=== PATIENT | male | born 1930 | race Caucasian/White ===

== ENCOUNTER 2018-08-04 06:18 | Inpatient (IN) ==
--- NOTE | 2018-08-04 07:25 | PROVIDER DOCUMENTATION ---
HPI-General Adult - General Chief Complaint: Shortness of Breath Stated Complaint: resp distress Time Seen by Provider: 08/04/18 06:50 Source: patient Allergies/Adverse Reactions: Patient Allergies Allergy/AdvReac Type Severity Reaction Status Date / Time amoxicillin trihydrate * Allergy Unknown Unknown Verified 05/27/18 11:50 [From Augmentin] Antihistamines - Alkylamine Allergy Unknown Unknown Verified 05/27/18 11:50 Antihistamines - Ethanolamine Allergy Unknown Unknown Verified 05/27/18 11:50 cefadroxil [Cefadroxil] Allergy Unknown Unknown Verified 05/27/18 11:50 levofloxacin [From Levaquin] Allergy Unknown Unknown Verified 05/27/18 11:50 potassium clavulanate * Allergy Unknown Unknown Verified 05/27/18 11:50 [From Augmentin] codeine AdvReac Severe "makes him Verified 05/27/18 11:50 wild" gatifloxacin [From Tequin] AdvReac Severe weakness Verified 05/27/18 11:50 morphine AdvReac Severe palpatation Verified 05/27/18 11:50 s adhesive AdvReac Intermediate RASH Verified 05/27/18 11:50 Home Medications: Home Medication List Medication Instructions Recorded Confirmed Last Taken Type Carvedilol [Coreg] 6.25 mg PO BID #60 tablet 02/07/14 05/27/18 02/01/16 06:00 Rx Magnesium Oxide [Mag-Ox] 400 mg PO DAILY #100 tablet 02/07/14 05/27/18 01/31/16 09:00 Rx Diltiazem [Cardizem] 120 mg PO DAILY 12/08/15 05/27/18 01/31/16 21:00 History Iron 65 mg PO DAILY 01/03/16 05/27/18 01/31/16 09:00 History ATORVAstatin [Lipitor] 40 mg PO HS tablet 10/14/17 05/27/18 Unknown Rx Potassium Chloride [Klor-Con M20] 20 meq PO BID 11/14/17 11/14/17 Unknown History Furosemide [Lasix] 40 mg PO BID tablet 11/18/17 05/27/18 Unknown Rx Warfarin [Coumadin] 5 mg PO QHS tablet 11/18/17 Unknown Rx - History of Present Illness -Gen Adult Nature of Presenting Problems: This patient states that he has been sob for several days. He has a long history of afib and has had a pleural effusion drained in September. He denies fever of sputum production. Location of Pain/Injury: reports: none Severity: reports: moderate Onset/Duration: reports: last week Timing: reports: still present, getting worse Context/Activities at Onset: reports: light activity Modifying Factors: worse with: exercise, movement Associated Symptoms: reports: shortness of breath, trouble walking. denies: denies symptoms, anxiety, arm pain, back/neck pain, chest pain, constipation, cough, diaphoresis, diarrhea, dizziness, EENT symptoms, fatigue, fever/chills, genitourinary problems, headaches, heartburn, joint pain, loss of appetite, malaise, muscle aches, sinus congestion/drainage, nausea, rash, seizure, sensory/motor loss, pain with inspiration, swelling/mass in abdomen, syncope, vomiting, weakness, other Similar Symptoms Previously?: Yes Recently seen or treated by another doctor?: Yes Review of Systems - Adult - REVIEW OF SYSTEMS - ADULT Constitutional: reports: no symptoms reported Eyes: reports: no symptoms reported Ears, Nose, Mouth & Throat: reports: no symptoms reported Cardiovascular: reports: no symptoms reported Respiratory: reports: dyspnea on exertion, shortness of breath Gastrointestinal: reports: no symptoms reported Genitourinary: reports: no symptoms reported Musculoskeletal: reports: no symptoms reported Integumentary: reports: no symptoms reported Neurological: reports: no symptoms reported Psychiatric: reports: no symptoms reported Endocrine: reports: no symptoms reported Hematologic/Lymphatic: reports: no symptoms reported Allergic/Immunologic: reports: no symptoms reported All Other Systems: Reviewed and Negative Past History - Adult - PAST MEDICAL HISTORY-ADULT Review of Records: reports: Old Records Reviewed Major Childhood Illnesses: reports: denies history Cardiovascular: reports: A-Fib, CAD, HTN, hyperlipidemia Respiratory: reports: denies history Gastrointestinal: reports: denies history Obstetrical/Gynecological: reports: denies history Genitourinary: reports: denies history Musculoskeletal: reports: denies history Neurological: reports: CVA Endocrine/Immune: reports: denies history Other Conditions: reports: denies history - PRIOR SURGERIES/PROCEDURES Surgical/Procedure History: reports: CABG, cholecystectomy - IMMUNIZATION STATUS Childhood Immunizations: See Nurse Assessment Flu Vaccine: See Nurse Assessment - FAMILY HISTORY Family History: reviewed, not pertinent - SOCIAL HISTORY Smoking: denies Physical Exam-General - CONSTITUTIONAL General Appearance: alert, no apparent distress - HEAD, EARS, NOSE, MOUTH & THROAT HENMT: normocephalic/atraumatic - NECK Neck: supple - RESPIRATORY Respiratory: decreased breath sounds (right base) - CARDIOVASCULAR Cardiovascular: regular rate, rhythm, irregularly irregular - GASTROINTESTINAL (ABDOMEN) Abdominal Exam: non tender, soft, no organomegaly - MUSCULOSKELETAL Extremity: no pedal edema - SKIN Integumentary: normal color, normal turgor - NEUROLOGIC Neurologic: grossly normal - PSYCHIATRIC Psych/Mental Status: oriented x 3 Progress - PLAN OF CARE/RESULTS Progress/Plan/Lab Results: Vital Signs - 8 hr 08/04/18 06:32 08/04/18 06:36 08/04/18 07:03 Temperature 97.9 F Pulse Rate 60 57 L 61 Respiratory Rate 20 20 20 Blood Pressure 125/65 125/65 116/61 O2 Sat by Pulse Oximetry 96 92 L 95 Orders Category Date Time Status CHEST-2 VIEWS [RAD] Stat Exams 08/04/18 07:18 Ordered CBC WITH ELECTRONIC DIFF [HEME] Stat Lab 08/04/18 07:18 Uncollected CMP [COMPREHENSIVE METABOLIC PANEL] [CHEM] Stat Lab 08/04/18 07:18 Uncollected EKG [EKG] Stat Ther 08/04/18 06:20 Ordered Result Diagrams: 08/04/18 06:30 08/04/18 08:09 - EKG 1 Time of EKG reading by physician:: 06:28 EKG Read and Signed by:: Chance Sanchez EKG Interpretation (*Must complete 3 of following elements*): Abnormal Rate: 64 Rhythm: a fib [place]: normal - CONSULTS/PCP/HOSPITALIST Notification #1 *Consult/PCP/Hospitalist*: Dr. Byrd Time Discussed: 08:15 Consult Disposition: Admit Departure - Departure Date of Disposition Decision: 08/04/18 Time of Disposition Decision: 08:48 DIAGNOSIS: Bilateral pleural effusion Disposition: ADMITTED INPATIENT 09 Certified Medical Emergency: Emergent Condition: Good Referrals and Follow-Ups: Torito Byrd MD [Primary Care Provider] - - Critical Care Note This patient required my direct & personal management of CC.: No Attestation - Physician/ JOSE Attestation The physician spent face to face time with patient:: Yes Advanced Practice Provider documentation review:: Supervising physician onsite and consulted in the evaluation and care of this patient. The physician did have a face to face encounter with the patient.
[2018-08-04 07:37] LABS: BASO# 0.01 X1000 (0.0-0.2); BASO% 0.2 % (0.0-0.8); EOS# 0.33 X1000 (0.0-0.7); HEMOGLOBIN 11.7 g/dL (14.0-18.0); LYMPH# 0.37 X1000 (1.2-3.4); LYMPH% 5.7 % (20.5-51.1); MCH 30.7 PG (27-31); MCHC 32.5 g/dL (33-37); MCV 94.5 FL (81-99); MONO# 0.71 X1000 (0.11-0.59); MONO% 10.9 % (1.7-9.3); MPV 12.8 FL (7.4-10.4); NEUT# 5.12 X1000 (1.4-6.5); NEUT% 78.2 % (42.2-75.2); PLT 104 X1000 (130-400); RBC 3.81 XMIL (4.7-6.1); RDW 14.9 % (11.5-14.5); WBC 6.54 X1000 (4.8-10.8)
--- NOTE | 2018-08-04 07:40 | Diag Imaging Result Doc PS360 ---
EXAM: CHEST-2 VIEWS INDICATION: short of breath TECHNIQUE: 2 views COMPARISON: 11/18/2017 FINDINGS: There are bilateral moderate-sized pleural effusions with adjacent atelectasis and/or infiltrate at the lung bases. There are stable COPD changes. There are calcified pleural plaques at the lung apices. There are stable CABG changes. Cardiac silhouette is grossly unremarkable, otherwise. IMPRESSION: Bilateral moderate-sized pleural effusions with adjacent atelectasis and/or infiltrate at the lung bases. Electronically signed by Asa Schilling 08/04/2018 7:37 AM
--- NOTE | 2018-08-04 08:12 | EKG Report ---
Test Performed on : 08/04/2018 06:27:18 AM Test Reason : sob Blood Pressure : / mmHG Vent. Rate : 064 BPM Atrial Rate : 063 BPM P-R Int : 000 ms QRS Dur : 100 ms QT Int : 402 ms P-R-T Axes : 000 029 063 degrees QTc Int : 414 ms Atrial fibrillation. Nonspecific ST and T wave abnormality Abnormal ECG When compared with ECG of 14-NOV-2017 12:14, Vent. rate has decreased BY 85 BPM Unconfirmed Result
[2018-08-04 08:39] LABS: AGAP 11; ALB/GLOB RATIO 1.3; ALBUMIN 3.6 g/dL (3.5-5.0); ALKALINE PHOSPHATASE 102 U/L (32-122); BUN 24 mg/dL (8-22); CALCIUM 9.6 mg/dL (8.8-10.2); CHLORIDE 106 mmol/L (98-107); COSMO 289; CREATININE 0.9 mg/dL (0.7-1.2); ESTIMATED GFR > 60; GLUCOSE 106 mg/dL (70-104); GOT 22 U/L (10-34); GPT 16 U/L (10-44); POTASSIUM 4.2 mmol/L (3.5-5.1); SODIUM 143 mmol/L (136-145); TCO2 26 mmol/L (25-35); TOTAL BILIRUBIN 1.38 mg/dL (0.20-1.00); TOTAL PROTEIN 6.3 g/dL (6.3-8.3)
[2018-08-04] MEDS: LASIX IV SCH (18:09)
[2018-08-04] MEDS: COZAAR PO SCH (18:09)
--- NOTE | 2018-08-04 18:36 | HISTORY AND PHYSICAL ---
HISTORY OF PRESENT ILLNESS: Mr. Sarmiento, who is an 88-year-old white gentleman with known case of chronic refractory CHF and chronic atrial fibrillation, was admitted with severe shortness of breath. He was feeling very short of breath and so was brought into the emergency room this morning. He has coronary artery disease. He has chronic atrial fibrillation and has been on multiple medications, including warfarin, atorvastatin, carvedilol, diltiazem, furosemide, magnesium oxide, iron tablet, and potassium supplement. He had coronary artery bypass surgery performed many years ago, a one-vessel bypass surgery He also had prostate surgery. SOCIAL HISTORY: He is a nonsmoker. He does not drink. ALLERGIES: He is allergic to antihistamines, amoxicillin, and alkylamines. REVIEW OF SYSTEMS: Other than shortness of breath and generalized weakness, it is noncontributory. PHYSICAL EXAMINATION: GENERAL: On physical examination, the patient is alert. VITAL SIGNS: Revealed temperature normal, pulse 90 per minute and irregular, respiratory rate 16 per minute, blood pressure 133/73. HEAD: Normocephalic. EYES: Pupils: PERRLA. Fundus examination not done. NECK: Supple JVP normal ENT: Unremarkable. There is no evidence of lymphadenopathy, thyroid enlargement, pedal edema, calf tenderness, anemia, cyanosis or clubbing. Pedal pulses well felt. BREAST: Normal. CHEST: Normal inspection. Revealed the midline scar from bypass surgery. LUNGS: Reveal occasional rales. However, there is bilateral poor air entry. CARDIOVASCULAR: PMI in the 6th left intercostal space outside the midclavicular line. Heart sounds normal. No murmur, gallop, or rub noted. ABDOMEN: Nondistended. Hernial orifices normal. No guarding, rigidity, free fluid, masses, or organomegaly. Bowel sounds normal. RECTAL: Exam deferred. CENTRAL NERVOUS SYSTEM: Functions are normal. Cranial nerves normal. Motor and sensory system examination unremarkable. Deep tendon reflexes normal. Plantars downgoing. Skull and spine examination normal for age. No cerebellar signs or signs of meningeal irritation. LOCOMOTOR: Unremarkable. SKIN: Unremarkable. IMPRESSION: 1. Congestive heart failure. 2. Chest x-ray shows cardiomegaly with bilateral pleural effusion. 3. He has chronic atrial fibrillation. PLAN: Start IV Lasix. We will keep him on telemetry and get a Cardiology consult. cc: Torito Byrd MD MTDD
[2018-08-04 18:41] LABS: INR 1.16; PROTIME 15.7 Seconds (11.0-16.0)
[2018-08-04] MEDS: COREG PO SCH (21:25)
[2018-08-04] MEDS: LIPITOR PO SCH (21:25)
[2018-08-04] MEDS: KLOR-CON PO SCH (21:25)
[2018-08-04] MEDS: COUMADIN PO SCH (21:25)
[2018-08-05] MEDS: PROTONIX PO SCH (06:18)
[2018-08-05] MEDS: LASIX IV SCH ×2 (06:18→18:07)
--- NOTE | 2018-08-05 07:01 | EKG Report ---
Test Performed on : 08/05/2018 06:55:49 AM Test Reason : CP Blood Pressure : / mmHG Vent. Rate : 070 BPM Atrial Rate : 115 BPM P-R Int : 000 ms QRS Dur : 098 ms QT Int : 366 ms P-R-T Axes : 000 029 075 degrees QTc Int : 395 ms Atrial fibrillation. with premature ventricular or aberrantly conducted complexes. and with ventricul ar escape complexes. Nonspecific ST and T wave abnormality Abnormal ECG When compared with ECG of 04-AUG-2018 06:27, (Unconfirmed) Sinus rhythm. is now with ventricular escape complexes. Confirmed by Best CERRATO, Camron Oliveros ([id number]) on 08/06/2018 8:20:38 AM
[2018-08-05 07:23] LABS: AGAP 9; BUN 25 mg/dL (8-22); CALCIUM 9.5 mg/dL (8.8-10.2); CHLORIDE 107 mmol/L (98-107); COSMO 294; CREATININE 0.9 mg/dL (0.7-1.2); ESTIMATED GFR > 60; GLUCOSE 114 mg/dL (70-104); MAGNESIUM 1.9 mg/dL (1.5-2.7); POTASSIUM 4.3 mmol/L (3.5-5.1); SODIUM 145 mmol/L (136-145); TCO2 29 mmol/L (25-35)
[2018-08-05] MEDS: KLOR-CON PO SCH ×2 (08:47→20:12)
[2018-08-05] MEDS: MAG-OX PO SCH (08:48)
[2018-08-05] MEDS: COZAAR PO SCH (08:48)
[2018-08-05] MEDS: CARDIZEM PO SCH (08:48)
[2018-08-05] MEDS: COREG PO SCH ×2 (08:48→20:11)
[2018-08-05] MEDS: FERROUS SULFATE PO SCH (08:48)
--- NOTE | 2018-08-05 09:41 | PROGRESS NOTE ---
DATE: 08/05/2018 SUBJECTIVE: Mr. Sarmiento is recovering from congestive heart failure. He has bilateral pleural effusion. ProBNP is elevated. Troponins are negative. He had a Cardiology consult. He has chronic atrial fibrillation and has bilateral pleural effusion. He is anemic. We are going to continue the current management on him. -1 cc: Torito Byrd MD
--- NOTE | 2018-08-05 14:05 | EKG Report ---
Test Performed on : 08/05/2018 1:59:44 PM Test Reason : bradycardia Blood Pressure : / mmHG Vent. Rate : 038 BPM Atrial Rate : 357 BPM P-R Int : 000 ms QRS Dur : 104 ms QT Int : 452 ms P-R-T Axes : 000 033 041 degrees QTc Int : 359 ms Junctional bradycardia. Nonspecific ST and T wave abnormality Abnormal ECG When compared with ECG of 05-AUG-2018 06:55, (Unconfirmed) Junctional rhythm. has replaced Atrial fibrillation. Vent. rate has decreased BY 32 BPM Confirmed by Best CERRATO, Camron Oliveros ([id number]) on 08/06/2018 8:21:03 AM
--- NOTE | 2018-08-05 14:20 | ECHO REPORT ---
ORDER DATE: 08/05/2018 INDICATIONS: CHF. FINDINGS: 1. The right atrium is severely enlarged with a dimension of 5 cm. 2. Mild tricuspid regurgitation. RV systolic pressure of 75 indicating pulmonary hypertension. 3. Right ventricle appears to be normal in size with mild to moderate reduction in RV systolic function. 4. Moderate pulmonic insufficiency. 5. Severe left atrial enlargement with a dimension of 5.4 cm. 6. There is posterior mitral valve prolapse with associated moderate to severe mitral regurgitation. This is anteriorly directed and eccentric. There is moderate mitral stenosis with a mean gradient of 9.5. The valve area was 3.8 cm2. 7. Normal LV size, end-diastolic dimension of 4.7. Mild left ventricular hypertrophy with a posterior and interventricular septal wall thickness 1.2 cm each. Normal LV systolic function. Estimated EF of 60% to 65% with normal wall motion. 8. Aortic valve opens well. It is trileaflet. No evidence of stenosis or insufficiency. 9. Aorta appears normal in visualized segments. 10. There may be a small pericardial effusion. This was somewhat difficult to visualize. There does appear to be evidence of pleural effusions. There does not appear to be any evidence of tamponade-type physiology. cc: MD Torito Medina MD
--- NOTE | 2018-08-05 14:33 | CARDIOLOGY CONSULTATION ---
DATE: 08/05/2018 PATIENT PROFILE: An 88-year-old male. CHIEF COMPLAINT: Dyspnea, cough. REQUESTING PROVIDER: Dr. Byrd. HISTORY: Mr. Sarmiento is a pleasant 88-year-old male, who has been seen by our service in the past. The patient presented with increasing dyspnea and swelling of his legs that has been going on for several days. The patient reached the point that he was not able to function at home. 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 Upon arrival to the hospital, they did a chest x-ray that shows bilateral moderate-sized pleural effusions with adjacent atelectasis and infiltrate at the lung bases. Electrocardiogram done shows evidence of atrial fibrillation with controlled rate. Nonspecific ST abnormality. Laboratory work showed a proBNP level of 4007. A troponin was 0.011. The patient has been given Lasix, and he is feeling better this morning. He denies having chest pain. Denies syncope. He just feels weak. Appetite is poor. PAST HISTORY: Significant for coronary heart disease. He has had coronary bypass surgery x1. He is known to have permanent atrial fibrillation. He also has significant mitral valvular dysfunction with severe mitral regurgitation. He has cancer of the prostate, kidney stones, pulmonary hypertension, and previous episodes of pleural effusion requiring thoracentesis. SURGICAL HISTORY: Besides the open-heart surgery, cataract extraction, cholecystectomy. SOCIAL HISTORY: He is . He used to work for the [employer]. He has no children. Not a smoker. REVIEW OF SYSTEMS: Really nothing much to add, other than that his general functional capacity is markedly impaired. He denies having any pains in the chest, fever, cough. He does have some issues with chronic sinus infection. HOME MEDICATIONS: At the time of this admission included the following: He is supposed to be on atorvastatin 40 mg daily, carvedilol 6.25 twice a day, diltiazem 120 daily, ferrous sulfate 325 daily, furosemide 40 IV every 12 hours, losartan 50 mg daily, magnesium oxide 400 and Protonix 40 mg, potassium chloride 20 twice a day, warfarin 5 mg at bedtime. ALLERGIES: This is a long list including amoxicillin, cefadroxil, Levaquin, Tequin, morphine, adhesive tape. PHYSICAL EXAMINATION: Vital signs: Blood pressure is 117/70, pulse 59, temperature 97.8 degrees, respirations 18. General: He is elderly, appears to be chronically ill, somewhat emaciated. His body mass index is 18.4. HEENT: Unremarkable. Chest: Diffusely diminished breath sounds with dullness to percussion at the level of the right base. Heart: Sounds are irregularly irregular with a prominent systolic murmur over the mitral valve area that radiated to the axilla, into the neck, 3/6 in intensity. No gallop is noted. Abdomen: Soft, scaphoid, nontender. Extremities: Showed trace edema. Neurological exam: Follows commands. Moves 4 extremities. BLOOD WORK: Hemoglobin is 11.7, hematocrit 36%, platelet count is 104,000. BUN 25, creatinine 0.9, sodium 145, potassium 4.3. IMPRESSION: 1. Patient who has decompensated chronic diastolic heart failure. Previous echocardiograms have indicated preserved left ventricular systolic function. This diastolic heart failure relates to a combination of permanent atrial fibrillation, coronary heart disease, and severe mitral regurgitation. 2. History of previous stroke. 3. Previous coronary bypass surgery. RECOMMENDATION: At this point in time, I agree with Dr. Byrd's approach. I will give Lasix as we are doing twice a day, low-dose beta micheline to control the rate and see how he does. The patient is in no distress at this time. We will observe his clinical course. cc: MD Torito Zamarripa MD
[2018-08-05] MEDS: LIPITOR PO SCH (20:11)
[2018-08-05] MEDS: COUMADIN PO SCH (20:11)
[2018-08-06 06:36] LABS: INR 1.15; PROTIME 15.6 Seconds (11.0-16.0)
[2018-08-06] MEDS: LASIX IV SCH (06:39)
[2018-08-06] MEDS: PROTONIX PO SCH (06:39)
[2018-08-06 06:52] LABS: AGAP 10; BUN 32 mg/dL (8-22); CALCIUM 9.4 mg/dL (8.8-10.2); CHLORIDE 103 mmol/L (98-107); COSMO 290; ESTIMATED GFR > 60; GLUCOSE 100 mg/dL (70-104); POTASSIUM 4.1 mmol/L (3.5-5.1); SODIUM 142 mmol/L (136-145); TCO2 29 mmol/L (25-35)
--- NOTE | 2018-08-06 07:38 | Diag Imaging Result Doc PS360 ---
EXAM: CHEST-2 VIEWS HISTORY: pleural effusion TECHNIQUE: Chest two views COMPARISON: 08/04/2018 FINDINGS: There are [id number] sized bilateral pleural effusions with basilar atelectasis. Atelectasis and edema are less pronounced on the current exam. No cardiomegaly. Sternal wires are present. IMPRESSION: Slight interval improvement. Electronically signed by Luis Antonio Mtz 08/06/2018 7:35 AM
--- NOTE | 2018-08-06 09:25 | PROGRESS NOTE ---
DATE: 08/06/2018 Mr. Sarmiento has significant amount of pleural effusion bilaterally. However, it is improving. The chest x-ray shows some improvement. Ejection fraction was around 60% with gross mitral regurgitation and left atrial enlargement. I am going to add spironolactone to the current regimen and continue everything the same way as suggested by Dr. Sanchez. -3 cc: Torito Byrd MD
[2018-08-06] MEDS: COREG PO SCH ×2 (09:45→20:25)
[2018-08-06] MEDS: FERROUS SULFATE PO SCH (09:45)
[2018-08-06] MEDS: COZAAR PO SCH (09:45)
[2018-08-06] MEDS: CARDIZEM PO SCH (09:45)
[2018-08-06] MEDS: KLOR-CON PO SCH ×2 (09:45→20:24)
[2018-08-06] MEDS: MAG-OX PO SCH (09:46)
--- NOTE | 2018-08-06 15:32 | EKG Report ---
Test Performed on : 08/06/2018 3:25:35 PM Test Reason : chest pain Blood Pressure : / mmHG Vent. Rate : 040 BPM Atrial Rate : 038 BPM P-R Int : 000 ms QRS Dur : 098 ms QT Int : 468 ms P-R-T Axes : 000 033 047 degrees QTc Int : 381 ms Junctional bradycardia. Nonspecific ST abnormality Abnormal ECG When compared with ECG of 05-AUG-2018 13:59, No significant change was found Confirmed by Bset CERRATO, Camron Oliveros ([id number]) on 08/08/2018 9:02:13 AM
[2018-08-06] MEDS ORDERED: NS 500 ML IV ONE (15:47)
[2018-08-06] MEDS: LIPITOR PO SCH (20:24)
[2018-08-06] MEDS: COUMADIN PO SCH (20:25)
[2018-08-06] MEDS: ALDACTONE PO SCH (20:25)
[2018-08-07 05:42] LABS: INR 1.21; PROTIME 16.2 Seconds (11.0-16.0)
[2018-08-07 05:44] LABS: AGAP 10; BUN 36 mg/dL (8-22); CALCIUM 9.4 mg/dL (8.8-10.2); CHLORIDE 104 mmol/L (98-107); COSMO 295; CREATININE 1.1 mg/dL (0.7-1.2); ESTIMATED GFR > 60; GLUCOSE 123 mg/dL (70-104); POTASSIUM 4.7 mmol/L (3.5-5.1); SODIUM 143 mmol/L (136-145); TCO2 29 mmol/L (25-35)
[2018-08-07] MEDS: PROTONIX PO SCH (06:27)
--- NOTE | 2018-08-07 08:03 | EKG Report ---
Test Performed on : 08/07/2018 07:13:25 AM Test Reason : atrial fibrillation Blood Pressure : / mmHG Vent. Rate : 076 BPM Atrial Rate : 064 BPM P-R Int : 000 ms QRS Dur : 096 ms QT Int : 358 ms P-R-T Axes : 000 033 087 degrees QTc Int : 402 ms Atrial fibrillation. Minimal voltage criteria for LVH, may be normal variant Nonspecific ST and T wave abnormality Abnormal ECG When compared with ECG of 06-AUG-2018 15:25, (Unconfirmed) Atrial fibrillation. has replaced Junctional rhythm. Vent. rate has increased BY 36 BPM Confirmed by Best CERRATO, Camron Oliveros ([id number]) on 08/08/2018 9:05:36 AM
--- NOTE | 2018-08-07 08:28 | CARDIOLOGY PROGRESS NOTE ---
DATE: 08/07/2018 CHIEF COMPLAINT: Shortness of breath, swelling, irregular pulse. SUBJECTIVE: Mr. Sarmiento is feeling fine this morning. Yesterday, there was a brief episode of significant bradycardia, possibly junctional rhythm. At the time, they checked the calcium level and they moved him to the ICU. The digoxin level was 1.0 nanograms per mL which is really not toxic. He might be sensitive to the drug. He had been also on Diltiazem and carvedilol which in combination with digoxin may have made matters worse. At this point in time, digoxin has been discontinued. The patient's heart rate overnight is in the 60s to 70s. He is just feeling better. OBJECTIVE: VITAL SIGNS: Blood pressure is 115/57, temperature 98.2 degrees, pulse 74, respirations 24. GENERAL: He is awake, alert, in no distress. He appears to be somewhat pale. HEENT: No significant prominence of jugular veins. CHEST: Symmetrical breath sounds. No definite rales. Heart sounds are irregularly irregular with a prominent apical systolic murmur of his mitral regurgitation. Radiates to the axilla and to the base. ABDOMEN: Nontender. EXTREMITIES: Show no edema. NEUROLOGICAL: He is awake, alert, follows commands. BLOOD WORK: This morning, sodium 143, potassium 4.7, BUN 36, creatinine 1.1. IMPRESSION: 1. Patient who had episode of bradycardia yesterday. He was totally asymptomatic with it. This is probably secondary to effect of digoxin plus carvedilol plus Diltiazem. 2. Permanent atrial fibrillation. 3. Severe mitral regurgitation. 4. Chronic diastolic heart failure. 5. Coronary heart disease, history of bypass. RECOMMENDATIONS: At this time, I would suggest to observe him in the hospital another day. I think he can probably go home very soon. His congestive state has improved. He is comfortable. Please call me if you have questions or concerns. cc: MD Torito Zamarripa MD
[2018-08-07] MEDS: COREG PO SCH ×2 (08:37→20:01)
[2018-08-07] MEDS: FERROUS SULFATE PO SCH (08:37)
[2018-08-07] MEDS: COZAAR PO SCH (08:37)
[2018-08-07] MEDS: KLOR-CON PO SCH ×2 (08:37→20:01)
[2018-08-07] MEDS: ALDACTONE PO SCH ×2 (08:37→20:01)
[2018-08-07] MEDS: MAG-OX PO SCH (08:38)
--- NOTE | 2018-08-07 09:14 | PROGRESS NOTE ---
DATE: 08/07/2018 Mr. Sarmiento is doing much better. His lungs sound much better today. Yesterday, he had a spell with bradycardia with atrial fibrillation. We thought it could be due to Coreg or Lanoxin. The level was therapeutic. Coreg was held. Heart rate is now back to normal. We are going to continue with the current management, and then wait until tomorrow to discharge him. -9 cc: Torito Byrd MD
[2018-08-07] MEDS: LIPITOR PO SCH (20:00)
[2018-08-07] MEDS: COUMADIN PO SCH (20:01)
[2018-08-08] MEDS: PROTONIX PO SCH (06:05)
[2018-08-08 08:23] VITALS: BP 117/70
[2018-08-08] MEDS: COZAAR PO SCH (09:02)
[2018-08-08] MEDS: KLOR-CON PO SCH (09:02)
[2018-08-08] MEDS: FERROUS SULFATE PO SCH (09:02)
[2018-08-08] MEDS: MAG-OX PO SCH (09:02)
[2018-08-08] MEDS: ALDACTONE PO SCH (09:02)
[2018-08-08] MEDS: COREG PO SCH (09:02)
--- NOTE | 2018-08-08 14:07 | DISCHARGE SUMMARY ---
ADMISSION DATE: 08/04/2018 DISCHARGE DATE: 08/08/2018 HISTORY: Mr. Sarmiento, who is 88-year-old white gentleman is admitted with generalized weakness and shortness of breath. LABORATORY AND DIAGNOSTIC: Laboratory Data in hospital, chest x-ray revealed cardiomegaly and bilateral pleural effusion. Echocardiogram revealed ejection fraction of 65% with normal wall motion and left atrial enlargement, right atrial enlargement and moderate pulmonic insufficiency seemed okay. There was severe mitral regurgitation. Repeat chest x-ray on 08/06 showed improvement. Other lab data: CBC revealed anemia, hemoglobin 11.7. INR was 1.21. ProBNP was 4007. Troponin was 0.011. Electrolytes are normal. Potassium was 4.7, BUN was 36, and creatinine 1.1. It went up from 25 to 36 on account of diuretic therapy. Creatinine Level was 1.0. COURSE IN HOSPITAL: He was treated with IV Lasix. Cardiology consult was obtained. He was seen by Dr. Sanchez, who continued the current medications and added losartan as well as carvedilol. He had one episode of severe bradycardia with atrial fibrillation. I stopped the carvedilol at home. I have given him one spironolactone prescription. He will be discharged today. FINAL DIAGNOSIS: Congestive heart failure with acute on chronic diastolic congestive heart failure, bilateral pleural effusion, severe mitral regurgitation. Biatrial enlargement. Chronic atrial fibrillation. DISCUSSION: He is on Coumadin which he is going to continue. He will be seen in the office in about 4 to 5 days. We will readjust his medications at that time. cc: Torito Byrd MD [facility]
--- NOTE | 2018-08-13 08:30 | DISCHARGE SUMMARY ---
ADMISSION DATE: 08/04/2018 DISCHARGE DATE: 08/08/2018 ADDENDUM REPORT Mr. Sarmiento was 6 feet 3 inches tall and weighed only 150 pounds. He is definitely underweight and was admitted for bilateral pleural effusion and congestive heart failure. cc: Torito Byrd MD
== END 2018-08-08 11:10 | disposition home health service (06) | DRG 292 ==
LOC: SUPCPDRO → ED 06:18 → 4N 10:03 → 3S 08-06 17:11
PROVIDERS: ADMIT Internal Medicine; ATTEND Internal Medicine
CPT/HCPCS: 71020; 71046; 80048; 80053; 80162; 83735; 83880; 84484; 85025; 85610; 85730; 93005; 93010; 93306; 99285; A9270; J1940; J7040

== ENCOUNTER 2018-08-14 07:46 | Inpatient (IN) ==
--- NOTE | 2018-08-14 08:50 | Diag Imaging Result Doc PS360 ---
EXAM: CHEST-2 VIEWS INDICATION: CHF TECHNIQUE: 2 views COMPARISON: 08/06/2018 FINDINGS: There are bilateral moderate-sized pleural effusions that are essentially stable. There is adjacent atelectasis and/or infiltrate bilaterally similar to the previous study. No pneumothorax is appreciated. There are stable mild calcified pleural plaques at the lung apices. There are CABG changes that are stable. The cardiac silhouette does not appear to be significantly enlarged. IMPRESSION: Bilateral moderate-sized pleural effusions with adjacent atelectasis and/or infiltrate at the lung bases. Electronically signed by Asa Schilling 08/14/2018 8:48 AM
[2018-08-14 09:11] LABS: INR 4.11
--- NOTE | 2018-08-14 09:23 | EKG Report ---
Test Performed on : 08/14/2018 09:07:44 AM Test Reason : CHF, afib, dyspnea Blood Pressure : / mmHG Vent. Rate : 083 BPM Atrial Rate : 079 BPM P-R Int : 000 ms QRS Dur : 092 ms QT Int : 390 ms P-R-T Axes : 000 040 052 degrees QTc Int : 458 ms Atrial fibrillation. Nonspecific ST and T wave abnormality Abnormal ECG When compared with ECG of 07-AUG-2018 07:13, T wave inversion now evident in Anterior leads QT has lengthened Unconfirmed Result
[2018-08-14 09:27] LABS: BASO# 0.01 X1000 (0.0-0.2); BASO% 0.1 % (0.0-0.8); EOS# 0.04 X1000 (0.0-0.7); EOS% 0.6 % (0.0-10.0); HEMATOCRIT 33.4 % (42.0-52.0); HEMOGLOBIN 11.2 g/dL (14.0-18.0); LYMPH# 0.27 X1000 (1.2-3.4); LYMPH% 3.9 % (20.5-51.1); MCHC 33.5 g/dL (33-37); MCV 92.5 FL (81-99); MONO# 0.57 X1000 (0.11-0.59); MONO% 8.3 % (1.7-9.3); NEUT# 5.97 X1000 (1.4-6.5); NEUT% 87.1 % (42.2-75.2); PLT 151 X1000 (130-400); RBC 3.61 XMIL (4.7-6.1); RDW 14.8 % (11.5-14.5); WBC 6.86 X1000 (4.8-10.8)
[2018-08-14 09:28] LABS: ALB/GLOB RATIO 1.4; ALBUMIN 3.7 g/dL (3.5-5.0); CALCIUM 9.3 mg/dL (8.8-10.2); CREATININE 1.4 mg/dL (0.7-1.2); MAGNESIUM 1.9 mg/dL (1.5-2.7); POTASSIUM 4.9 mmol/L (3.5-5.1); TOTAL BILIRUBIN 0.72 mg/dL (0.20-1.00); TOTAL PROTEIN 6.4 g/dL (6.3-8.3)
[2018-08-14 09:35] LABS: PROTIME 42.6 Seconds (11.0-16.0)
--- NOTE | 2018-08-14 10:05 | PROVIDER DOCUMENTATION ---
HPI-Cardiac General - General Chief Complaint: Shortness of Breath Stated Complaint: SOB Time Seen by Provider: 08/14/18 08:03 Source: patient, old records Allergies/Adverse Reactions: Patient Allergies Allergy/AdvReac Type Severity Reaction Status Date / Time amoxicillin trihydrate * Allergy Unknown Unknown Verified 08/14/18 08:21 [From Augmentin] Antihistamines - Alkylamine Allergy Unknown Unknown Verified 08/14/18 08:21 Antihistamines - Ethanolamine Allergy Unknown Unknown Verified 08/14/18 08:21 cefadroxil [Cefadroxil] Allergy Unknown Unknown Verified 08/14/18 08:21 levofloxacin [From Levaquin] Allergy Unknown Unknown Verified 08/14/18 08:21 potassium clavulanate * Allergy Unknown Unknown Verified 08/14/18 08:21 [From Augmentin] codeine AdvReac Severe "makes him Verified 08/14/18 08:21 wild" gatifloxacin [From Tequin] AdvReac Severe weakness Verified 08/14/18 08:21 morphine AdvReac Severe palpatation Verified 08/14/18 08:21 s adhesive AdvReac Intermediate RASH Verified 08/14/18 08:21 Home Medications: Home Medication List Medication Instructions Recorded Confirmed Last Taken Type Magnesium Oxide [Mag-Ox] 400 mg PO DAILY #100 tablet 02/07/14 08/14/18 01/31/16 09:00 Rx Diltiazem [Cardizem] 120 mg PO DAILY 12/08/15 08/14/18 01/31/16 21:00 History Iron 65 mg PO DAILY 01/03/16 08/14/18 01/31/16 09:00 History Potassium Chloride [Klor-Con M20] 20 meq PO BID 11/14/17 08/14/18 Unknown History Furosemide [Lasix] 40 mg PO BID tablet 11/18/17 08/14/18 Unknown Rx Warfarin [Coumadin] 5 mg PO QHS tablet 11/18/17 08/14/18 Unknown Rx ATORVAstatin [Lipitor] 40 mg PO HS tab 08/08/18 08/14/18 Unknown Rx Ferrous Sulfate 325 mg PO DAILY tab 08/08/18 08/14/18 Unknown Rx Losartan [Cozaar] 50 mg PO DAILY tab 08/08/18 08/14/18 Unknown Rx Pantoprazole [Protonix] 40 mg PO DAILY@0700 tab 08/08/18 08/14/18 Unknown Rx Spironolactone [Aldactone] 25 mg PO BID tab 08/08/18 08/14/18 Unknown Rx Carvedilol [Coreg] 1 tab PO BID 08/14/18 08/14/18 Unknown History - History of Present Illness-Cardiac Nature of Presenting Problem: pt w/ recent admit for CHF/dyspnea, had echo showing EF > 60% but significant MVR (normal AV), hx of persistent afib on coumadin, had Rx change at d/c following consultation w/ Dr. Sanchez (Losartan and carvedilol added, but latter stopped due to bradycardia, aldactone added at discharge) returns stating meds "made me worse and hurt" and he also reports palpitations but took one p.ol Digoxin (old Rxs) which "calmed it down." still cc: SOB, atypical CP. hx of CABG in 2003. known bilat pleural effusions, chronic. last CXR no notable c'megaly. pt has been using his 's home 02, does not have his own. Location: reports: [place] Quality of Pain: reports: fullness Severity in ED: mild Onset/Duration: unsure Timing: still present Palpitation Quality: irregular History of arrythmia: reports: A-Fib Nitro Today/Relief: reports: no nitro taken today Review of Systems - Adult - REVIEW OF SYSTEMS - ADULT Constitutional: reports: no symptoms reported Eyes: reports: no symptoms reported Ears, Nose, Mouth & Throat: reports: no symptoms reported Cardiovascular: reports: see HPI Respiratory: reports: see HPI Gastrointestinal: reports: no symptoms reported Genitourinary: reports: no symptoms reported Musculoskeletal: reports: no symptoms reported Integumentary: reports: no symptoms reported Neurological: reports: no symptoms reported Psychiatric: reports: no symptoms reported Endocrine: reports: no symptoms reported Hematologic/Lymphatic: reports: no symptoms reported Allergic/Immunologic: reports: no symptoms reported All Other Systems: Reviewed and Negative Past History - Adult - PAST MEDICAL HISTORY-ADULT Review of Records: reports: Old Records Reviewed Major Childhood Illnesses: reports: denies history Cardiovascular: reports: A-Fib, CAD, HTN, hyperlipidemia Respiratory: reports: denies history Gastrointestinal: reports: denies history Obstetrical/Gynecological: reports: denies history Genitourinary: reports: denies history Musculoskeletal: reports: denies history Neurological: reports: CVA Endocrine/Immune: reports: denies history Other Conditions: reports: denies history - PRIOR SURGERIES/PROCEDURES Surgical/Procedure History: reports: CABG, cholecystectomy - IMMUNIZATION STATUS Childhood Immunizations: See Nurse Assessment Flu Vaccine: See Nurse Assessment - FAMILY HISTORY Family History: reviewed, not pertinent Physical Exam-General - PHYSICAL EXAM-ADULT Initial Vital Signs Reviewed: Yes - CONSTITUTIONAL General Appearance: alert, no apparent distress - EYES Eyes: PERRL/EOMI, pink conjunctivae - HEAD, EARS, NOSE, MOUTH & THROAT HENMT: normocephalic/atraumatic, normal ENT inspection - NECK Neck: supple, other (JVD to 3-4 cm at 45 degrees HOB elevation). negative: trachial deviation, thyromegaly - RESPIRATORY Respiratory: no accessory muscle use, decreased breath sounds, dull on percussion. 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 II-XII nml as tested, grossly normal - PSYCHIATRIC Psych/Mental Status: normal mood/affect, normal thought content Progress - PLAN OF CARE/RESULTS Progress/Plan/Lab Results: Vital Signs - 8 hr 08/14/18 07:57 08/14/18 07:59 08/14/18 08:00 Temperature 97.2 F L Pulse Rate 88 90 83 Respiratory Rate 23 19 28 H Blood Pressure 97/64 97/64 O2 Sat by Pulse Oximetry 92 L 85 L 94 L 08/14/18 08:10 08/14/18 08:20 08/14/18 08:50 Temperature Pulse Rate 69 76 76 Respiratory Rate 25 H 22 25 H Blood Pressure O2 Sat by Pulse Oximetry 95 98 95 08/14/18 09:00 08/14/18 09:10 08/14/18 09:20 Temperature Pulse Rate 73 71 77 Respiratory Rate 28 H 25 H 23 Blood Pressure O2 Sat by Pulse Oximetry 99 97 99 08/14/18 09:30 08/14/18 09:40 08/14/18 09:50 Temperature Pulse Rate 74 68 86 Respiratory Rate 22 22 26 H Blood Pressure O2 Sat by Pulse Oximetry 99 100 98 08/14/18 10:00 Temperature Pulse Rate 83 Respiratory Rate 23 Blood Pressure O2 Sat by Pulse Oximetry 99 Laboratory Results - last 24 hr 08/14/18 08/14/18 08/14/18 08:35 08:35 08:35 WBC 6.86 RBC 3.61 L Hgb 11.2 L Hct 33.4 L MCV 92.5 MCH 31.0 MCHC 33.5 RDW Std Deviation 14.8 H Plt Count 151 MPV 11.0 H Immature Gran % (Auto) 0.0 Neut % (Auto) 87.1 H Lymph % (Auto) 3.9 L Sutton % (Auto) 8.3 Eos % (Auto) 0.6 Baso % (Auto) 0.1 Immature Gran # (Auto) 0.00 Neut # (Auto) 5.97 Lymph # (Auto) 0.27 L Sutton # (Auto) 0.57 Eos # (Auto) 0.04 Baso # (Auto) 0.01 Segmented Neutrophils 86 H Lymphocytes 4 L Monocytes 8 Eosinophils 2 Anisocytosis 1+ Macrocytosis 1+ PT INR Sodium 140 Potassium 4.9 Chloride 102 Carbon Dioxide 28 Anion Gap 10 BUN 52 H Creatinine 1.4 H Estimated GFR/1.73 m2 48 BUN/Creatinine Ratio 37 Glucose 155 H Calculated Osmolality 297 Calcium 9.3 Magnesium 1.9 Total Bilirubin 0.72 AST 24 ALT 38 Alkaline Phosphatase 104 Troponin T Pfy-P-Ofkxxfjnkmq Pept 57314 H Total Protein 6.4 Albumin 3.7 Globulin 2.7 Albumin/Globulin Ratio 1.4 08/14/18 08/14/18 08:35 08:35 WBC RBC Hgb Hct MCV MCH MCHC RDW Std Deviation Plt Count MPV Immature Gran % (Auto) Neut % (Auto) Lymph % (Auto) Sutton % (Auto) Eos % (Auto) Baso % (Auto) Immature Gran # (Auto) Neut # (Auto) Lymph # (Auto) Sutton # (Auto) Eos # (Auto) Baso # (Auto) Segmented Neutrophils Lymphocytes Monocytes Eosinophils Anisocytosis Macrocytosis PT 42.6 H D INR 4.11 D Sodium Potassium Chloride Carbon Dioxide Anion Gap BUN Creatinine Estimated GFR/1.73 m2 BUN/Creatinine Ratio Glucose Calculated Osmolality Calcium Magnesium Total Bilirubin AST ALT Alkaline Phosphatase Troponin T 0.048 Osc-A-Jcbcyfomdzf Pept Total Protein Albumin Globulin Albumin/Globulin Ratio Orders Category Date Time Status CHEST-2 VIEWS [RAD] Stat Exams 08/14/18 08:06 Completed CBC WITH DIFF [HEME] Stat Lab 08/14/18 08:35 Completed COMPREHENSIVE METABOLIC PANEL [CHEM] Stat Lab 08/14/18 08:35 Completed MAGNESIUM [CHEM] Stat Lab 08/14/18 08:35 Completed PRO B-NATRIURETIC PEPTIDE Stat Lab 08/14/18 08:35 Completed PROTIME WITH INR [COAG] Stat Lab 08/14/18 08:35 Completed TROPONIN T Stat Lab 08/14/18 08:35 Completed EKG [EKG] Stat Ther 08/14/18 08:06 Draft BNP has tripled since last week admission, renal fx stable as is CXR; INR > 4 now. Result Diagrams: 08/14/18 08:35 08/14/18 08:35 - REASSESSMENT Reassessment #1 Time Reassessed: 11:26 Status: unchanged (will consult Dr. Byrd) - CONSULTS/PCP/HOSPITALIST Notification #1 *Consult/PCP/Hospitalist*: [facility] Consult Disposition: Admit Departure - Departure Date of Disposition Decision: 08/14/18 Time of Disposition Decision: 11:26 DIAGNOSIS: CHF (congestive heart failure), Cardiomegaly, Bilateral pleural effusion Disposition: ADMITTED INPATIENT 09 Certified Medical Emergency: Emergent Condition: Stable Referrals and Follow-Ups: None,PCP [Primary Care Provider] - - Critical Care Note This patient required my direct & personal management of CC.: No Attestation - Physician/ JOSE Attestation The physician spent face to face time with patient:: Yes Advanced Practice Provider documentation review:: Supervising physician onsite and consulted in the evaluation and care of this patient. The physician did have a face to face encounter with the patient.
[2018-08-14 10:28] LABS: EOS 2 % (1-10); LYMPHS 4 % (21-51); MONO 8 % (1-9); SEGS 86 % (42-75)
[2018-08-14 10:29] LABS: ANISOCYTOSIS 1+
--- NOTE | 2018-08-14 11:25 | ED EKG INTERP ---
This chart was entered by Kellee Salinas Scribe, acting as scribe for Williams Mata MD. EKG Interpretation - EKG Time of EKG reading by physician:: 09:07 EKG Read and Signed by:: Williams Mata EKG Interpretation (*Must complete 3 of following elements*): Abnormal Rate: 83 Rhythm: afib [place]: normal QRS: normal MT Interval: normal Comments: nonspecific st and t wave abnormality Attestation - Physician/ JOSE Attestation Patient care was provided by Advanced Practice Provider:: No The physician spent face to face time with patient:: Yes Advanced Practice Provider documentation review:: Supervising physician onsite and consulted in the evaluation and care of this patient. The physician did have a face to face encounter with the patient. This chart was documented by the indicated scribe, (Kellee Salinas Scribe) and accurately reflects the services I performed and decisions made by me, Williams Mata MD, as attested by the provider's signature.
--- NOTE | 2018-08-14 19:52 | HISTORY AND PHYSICAL ---
HISTORY OF PRESENT ILLNESS: Mr. Sarmiento is an 88-year-old white gentleman, a known case of chronic refractory congestive heart failure and chronic atrial fibrillation. He is admitted with increasing shortness of breath and generalized severe weakness. He was seen in the emergency room earlier today and it was found that his proBNP was 3 times more than it was last time while he was in the hospital 10 days ago. His INR was also above 4 and hence he was admitted for further management. Mr. Sarmiento was recently discharged. While he was in the hospital last time, he had a period of severe bradycardia and his atenolol was stopped. He has been on multiple medications, including Lipitor 40 mg, carvedilol 6.25 mg b.i.d., diltiazem, ferrous sulfate, losartan 50 mg daily, spironolactone 25 mg b.i.d., Lasix 40 b.i.d., and Protonix. He also takes KCl 20 mEq b.i.d. He is a nonsmoker and does not drink. He is allergic to amoxicillin as well as antihistamines and alkylamine. He has early dementia, also. REVIEW OF SYSTEMS: Other than generalized weakness and shortness of breath, he denies having any chest pain. PHYSICAL EXAMINATION: VITAL SIGNS: Temperature normal, pulse 84 per minute and irregularly irregular, respiratory rate 18 per minute, blood pressure 103/61, O2 saturation was 95%. HEAD: Normocephalic. EYES: Pupils PERRLA. Fundus examination not done. NECK: Supple. JVP normal. ENT: Examination unremarkable. EXTREMITIES: There is no evidence of lymphadenopathy, thyroid enlargement, pedal edema, calf tenderness, anemia, cyanosis or clubbing. Pedal pulses well felt. BREASTS: Normal. CHEST: Midline scar from her CABG which was done about 20 years ago. LUNGS: Bilateral poor air entry with occasional rales at the bases. HEART: PMI in the 6th left intercostal space outside the midclavicular line. Heart sounds normal. No murmur, gallop, or rub noted. ABDOMEN: Nondistended. Hernial orifices normal. No guarding, rigidity, free fluid, masses, or organomegaly. Bowel sounds normal. RECTAL: Deferred. VAULT MANAGER: Higher functions normal. Cranial nerves normal. Motor and sensory system examination unremarkable. Deep tendon reflexes normal. Plantars downgoing. Skull and spine examination normal for age. No cerebellar signs or signs of meningeal irritation on locomotor exam. SKIN: Unremarkable. CLINICAL IMPRESSION: 1. Congestive heart failure. 2. Chronic atrial fibrillation. 3. Bilateral pleural effusions. The pleural effusion is moderate in size. PLAN: 1. IV Lasix. 2. Keep him on telemetry. 3. Get a cardiology consult. 4. He may need a thoracentesis this time. 5. At present, his INR is high, so we will at present just treat him with IV Lasix and continue his other medications. cc: Torito Byrd MD
[2018-08-14] MEDS ORDERED: COUMADIN PO SCH (21:00)
[2018-08-14] MEDS ORDERED: LASIX PO SCH (21:00)
[2018-08-14] MEDS: KLOR-CON PO SCH (21:25)
[2018-08-14] MEDS: LIPITOR PO SCH (21:25)
[2018-08-14] MEDS: COREG PO SCH (21:26)
[2018-08-14] MEDS: ALDACTONE PO SCH (21:26)
[2018-08-14] MEDS: LASIX IV SCH (21:26)
[2018-08-15] MEDS: PROTONIX PO SCH (06:04)
[2018-08-15] MEDS: MAG-OX PO SCH (08:05)
[2018-08-15] MEDS: CARDIZEM CD PO SCH (08:05)
[2018-08-15] MEDS: COZAAR PO SCH (08:06)
[2018-08-15] MEDS: KLOR-CON PO SCH ×2 (08:06→21:47)
[2018-08-15] MEDS: LASIX IV SCH ×2 (08:07→21:46)
[2018-08-15] MEDS: FERROUS SULFATE PO SCH ×2 (08:07→08:22)
[2018-08-15] MEDS: ALDACTONE PO SCH ×2 (08:07→21:48)
[2018-08-15] MEDS: COREG PO SCH ×2 (08:12→21:49)
--- NOTE | 2018-08-15 13:07 | PROGRESS NOTE ---
DATE: 08/15/2018 SUBJECTIVE: Mr. Sarmiento was admitted with congestive heart failure. He has bilateral pleural effusions. He is getting IV Lasix. He has a Cardiology and Pulmonary consultation. Congestive heart failure has gotten worse. I am going to repeat his pro time again. We are holding his Coumadin for the time being. He has some dermatitis on the legs. We will try to apply some hydrocortisone lotion on it. cc: Torito Byrd MD
--- NOTE | 2018-08-15 15:08 | EKG Report ---
Test Performed on : 08/15/2018 3:01:07 PM Test Reason : dyspnea Blood Pressure : / mmHG Vent. Rate : 063 BPM Atrial Rate : 214 BPM P-R Int : 000 ms QRS Dur : 100 ms QT Int : 400 ms P-R-T Axes : 000 046 057 degrees QTc Int : 409 ms Atrial fibrillation. Minimal voltage criteria for LVH, may be normal variant ST & T wave abnormality, consider anterior ischemia Abnormal ECG When compared with ECG of 14-AUG-2018 09:07, (Unconfirmed) QT has shortened Confirmed by Best CERRATO, Camron Oliveros ([id number]) on 08/18/2018 9:27:43 AM
[2018-08-15] MEDS: LIPITOR PO SCH (21:48)
[2018-08-15] MEDS: HYDROCORTISONE 2.5% LOTION TOP SCH (21:52)
--- NOTE | 2018-08-15 22:54 | CONSULTATION ---
DATE OF CONSULTATION: 08/15/2018 IMPRESSION: 1. Acute on chronic congestive heart failure related to mitral regurgitation and chronic atrial fibrillation. Patient demonstrates a predominance of right-sided heart failure related to pulmonary hypertension with associated bilateral pleural effusions. He was recently hospitalized for the same diagnosis and demonstrated a trend toward improvement, after which he was discharged. However, he failed to improve further despite Lasix 40 mg p.o. b.i.d. 2. Mitral regurgitation, moderate to severe. 3. Permanent atrial fibrillation. 4. Atherosclerotic coronary disease and previous coronary bypass surgery in the past. 5. Hyperlipidemia. 6. Some degree of dementia. 7. Previous cerebrovascular accident. RECOMMENDATIONS: 1. Increase Lasix to 60 mg IV q.12 hours, and try and promote diuresis. 2. Continue losartan and carvedilol. 3. Conservative cardiovascular management overall. HISTORY: This 88-year-old, white male with past history of chronic congestive heart failure related to mitral regurgitation and chronic atrial fibrillation with associated pulmonary hypertension and tendency for right-sided heart failure was admitted with worsened congestive heart failure. He was just hospitalized here about 10 days ago for congestive heart failure. He had bilateral pleural effusions that were mild to moderate in size. He had some symptomatic improvement after diuresis and was discharged. He returned to the emergency room reporting feeling weak. He is somewhat a difficult historian due to poor memory. He denies shortness of breath. There has been no chest pain. He was found to have bilateral pleural effusions and evidence of congestive heart failure. ProBNP had elevated significantly since his last hospital stay. He started on intravenous Lasix to promote diuresis, but result thus far has been somewhat limited. PAST MEDICAL HISTORY: 1. Chronic congestive heart failure related to atrial fibrillation and chronic atrial fibrillation with associated pulmonary hypertension. 2. Atherosclerotic coronary disease with previous coronary bypass grafting. 3. Hyperlipidemia. 4. Some degree of dementia. 5. Prostate cancer. 6. Nephrolithiasis. ALLERGIES: He is allergic or intolerant to amoxicillin, among other medications. MEDICATIONS PRIOR TO ADMISSION: As listed. SOCIAL HISTORY: He is . He has no children. He does not smoke. FAMILY HISTORY: Negative for premature coronary disease. REVIEW OF SYSTEMS: Pulmonary: Noteworthy for some exertional dyspnea, but negative for orthopnea. Gastrointestinal: Noncontributory. Constitutional: Noncontributory. Remainder review of systems negative/noncontributory with 14 total systems reviewed. PHYSICAL EXAMINATION: General: This is a elderly white male in no distress, on supplemental oxygen per nasal cannula. Vital signs: Blood pressure 106/71, heart rate 76, oxygen saturation 97% on nasal cannula oxygen at 3 L/minute. HEENT: Extraocular movements appear intact. Mucous membranes moist. Neck: Supple. Jugular venous distention is not significantly elevated. Chest: Auscultation of the chest reveals diminished breath sounds at the bases bilaterally. Cardiac: Reveals an irregular rate and rhythm with a grade 3/6 holosystolic murmur at the left ventricular apex. Gallop could not be appreciated. Abdomen: Soft. Bowel sounds are normal. Extremities: Demonstrate very mild edema. Neurologic: Reveals him to be alert and responsive. Memory is obviously poor. Speech is fluent. Moves all 4 extremities equally well. Skin: Warm and dry. Psychiatric: Reveals mood to be appropriate. PERTINENT DATA: A 12-lead electrocardiogram demonstrates atrial fibrillation and nonspecific ST and T-wave abnormality. LABORATORY DATA: Includes white blood cell count 6.86, hematocrit 33.4, hemoglobin 11.2, platelet count 151,000. Pro-time 42.6, INR 4.11. Sodium 140, potassium 4.9, chloride 102, carbon dioxide 28, BUN 52, creatinine 1.4. Creatinine clearance 36. Magnesium 1.9. Pro B-natriuretic peptide level 12,800. Albumin 3.7. cc: MD Torito Low MD
[2018-08-16] MEDS: PROTONIX PO SCH (06:20)
[2018-08-16 06:54] LABS: INR 2.91; PROTIME 32.4 Seconds (11.0-16.0)
[2018-08-16 07:14] LABS: CALCIUM 9.5 mg/dL (8.8-10.2); CREATININE 1.2 mg/dL (0.7-1.2); POTASSIUM 4.6 mmol/L (3.5-5.1)
[2018-08-16] MEDS: LASIX IV SCH ×2 (09:07→22:48)
[2018-08-16] MEDS: FERROUS SULFATE PO SCH ×2 (09:08→09:09)
[2018-08-16] MEDS: ALDACTONE PO SCH ×2 (09:08→22:48)
[2018-08-16] MEDS: MAG-OX PO SCH (09:08)
[2018-08-16] MEDS: KLOR-CON PO SCH ×2 (09:08→22:48)
[2018-08-16] MEDS: COZAAR PO SCH (09:08)
[2018-08-16] MEDS: COREG PO SCH ×2 (09:08→22:49)
[2018-08-16] MEDS: CARDIZEM CD PO SCH (09:08)
[2018-08-16] MEDS: HYDROCORTISONE 2.5% LOTION TOP SCH ×2 (09:09→22:50)
--- NOTE | 2018-08-16 14:41 | Diag Imaging Result Doc PS360 ---
EXAM: CHEST-1 VIEW 08/16/2018 HISTORY: CHF TECHNIQUE: AP portable upright at 1337 COMMENT: There are bilateral pleural effusions. There is interstitial and alveolar pulmonary edema. There is bibasilar atelectasis or pneumonia. This has worsened slightly since the previous study of 08/14/2018. IMPRESSION: Worsened pulmonary edema and pleural effusions. Electronically signed by John Leon 08/16/2018 2:38 PM
[2018-08-16] MEDS ORDERED: COUMADIN PO SCH (21:00)
--- NOTE | 2018-08-16 21:55 | PROGRESS NOTE ---
DATE: 08/16/2018 VITAL SIGNS: Temperature 97.5, heart rate 78, respirations 20, blood pressure 99/66, O2 saturation on 3 L nasal oxygen 97%. LABORATORY: Hemoglobin 11.2, hematocrit 33.4, white blood count 6800. Prothrombin time 32.4 and INR 2.9. Initial INR was 4.11. SUBJECTIVE/OBJECTIVE: The patient has been on Coumadin 5 mg at bedtime, and this was discontinued in the hospital. There is a long history of atrial fibrillation. He continues to have irregular heartbeat suggestive of atrial fibrillation. He was seen yesterday by Cardiology, Dr. Weston. IMPRESSION: Chronic congestive heart failure related to mitral regurgitation. There was moderate to severe mitral regurgitation. Also, there was atrial fibrillation, coronary artery disease post coronary artery bypass grafting in the past, dementia, and previous CVA. Dr. Weston recommended conservative cardiovascular management and increasing Lasix to 60 mg IV every 12 hours. Lungs are fairly clear today. He states that his shortness of breath is about the same. There is no ankle edema. PLAN: Continue current medicines. Chest x-ray is ordered for tomorrow morning. Coumadin will be restarted at 2.5 mg at bedtime. cc: MD Torito Echols MD
[2018-08-16] MEDS: LIPITOR PO SCH (22:48)
[2018-08-17] MEDS: PROTONIX PO SCH (06:18)
[2018-08-17 06:26] LABS: INR 2.18; PROTIME 25.9 Seconds (11.0-16.0)
[2018-08-17 06:59] LABS: CREATININE 1.3 mg/dL (0.7-1.2); POTASSIUM 4.9 mmol/L (3.5-5.1)
[2018-08-17 07:00] LABS: CALCIUM 9.9 mg/dL (8.8-10.2); MAGNESIUM 1.8 mg/dL (1.5-2.7)
--- NOTE | 2018-08-17 08:18 | PULMONOLOGY CONSULTATION ---
DATE: 08/16/2018 REQUESTING PHYSICIAN: Dr. Torito Byrd. REASON FOR CONSULTATION: Shortness of breath and pleural effusion. HISTORY OF PRESENT ILLNESS: Mr. Sarmiento is an 88-year-old white male, never smoker, with atrial fibrillation, severe mitral regurgitation, recurrent pleural effusions, and pulmonary hypertension, who has had several admissions to the hospital with heart failure. The patient was recently admitted from 08/04 through 08/08/2018 for shortness of breath and heart failure, only to return 08/14/2018 with increasing shortness of breath. Chest x-ray reveals bilateral effusions. He has been evaluated by Cardiology and is currently being diuresed as tolerated. The patient has a component of dementia. He knows he is in the hospital. He does not know the current president. PAST MEDICAL HISTORY: 1. Chronic atrial fibrillation. 2. Severe pulmonary hypertension. 3. Severe mitral regurgitation. 4. Dyslipidemia. 5. History of stroke. 6. Dementia. SOCIAL HISTORY: No alcohol or tobacco use noted. FAMILY HISTORY: Positive for prostate cancer and coronary artery disease. REVIEW OF SYSTEMS: Currently negative. The patient is comfortable while at rest. PHYSICAL EXAMINATION: General: Reveals an elderly white male resting quietly in no distress. Vitals: Blood pressure 99/66, heart rate 78, respiratory rate 20, oxygen saturation 97% on 3 L per nasal cannula. HEENT: Pupils are equal and reactive. Oropharynx is clear. Neck: Supple. Chest: Reveals minimal subcutaneous fat. He has decreased breath sounds both lung bases. Cardiac: Irregularly irregular with 3 to 4/6 systolic murmur left base. S1-S2. Abdomen: Soft. Extremities: Reveal trace edema. LABORATORIES: INR is elevated at 2.9. White blood count 6.86, hemoglobin 11.2. Sodium 143, potassium 4.6, chloride 105, bicarbonate 29, BUN 37, creatinine 1.2. IMPRESSION: An 88-year-old with: 1. Bilateral pleural effusions. 2. Hypoxemic respiratory failure. 3. Dyspnea on exertion. 4. Severe pulmonary hypertension. 5. Mitral regurgitation. 6. Atrial fibrillation. DISCUSSION: An 88-year-old with problems outlined above. He may benefit from a thoracentesis and this will be scheduled when his INR is less than 1.5. Unfortunately, this is likely going to be an ongoing problem. He might benefit from a MitraClip, but as per discussion with Cardiology, given his age, frailty, and dementia, he is not a good candidate for this procedure. PLAN: 1. Continue oxygen for hypoxemic respiratory failure. 2. [place] INR levels. 3. Anticipate thoracentesis on Saturday or Saturday morning. cc: MD Torito Judd MD
--- NOTE | 2018-08-17 08:21 | CARDIOLOGY PROGRESS NOTE ---
DATE: 08/17/2018 SUBJECTIVE: Mr. Sarmiento reports relatively stable symptoms. It does not seem like he has had a significant improvement in his shortness of breath. OBJECTIVE: Vital Signs: He is afebrile. Heart rate is 78. His blood pressure is 99/66 and most systolics appear to be in the 90s to 100s. General: He is in no acute distress. Cardiovascular: He sounds to be in a regular rate and rhythm. I do not hear any obvious murmurs. He has no lower extremity edema. Chest: Exam is notable for diffuse reduction in breath sounds in the lower 1/3 to 1/2 of both lung mcbride. He has no increased work of breathing. Abdomen: Soft, nontender. INPUT AND OUTPUT: Difficult to track given it seems he has had limited data thus far. PERTINENT DATA: Sodium is 143, potassium is 4.6. His INR is 2.9. BUN 37. Creatinine is 1.2. ASSESSMENT: Mr. Sarmiento is an 88-year-old gentleman with a history of mitral regurgitation. Chronic atrial fibrillation. PLAN: We will try to stop his diltiazem, preferentially treat his atrial fibrillation with beta blockers. He is already on Coreg at 6.25 b.i.d. I will try to increase his losartan to try to improve his afterload reduction. cc: MD Torito Medina MD
[2018-08-17] MEDS: KLOR-CON PO SCH ×2 (09:18→22:18)
[2018-08-17] MEDS: COZAAR PO SCH (09:18)
[2018-08-17] MEDS: LASIX IV SCH ×3 (09:18→22:30)
[2018-08-17] MEDS: FERROUS SULFATE PO SCH ×2 (09:18→09:21)
[2018-08-17] MEDS: MAG-OX PO SCH (09:18)
[2018-08-17] MEDS: ALDACTONE PO SCH ×3 (09:19→22:33)
[2018-08-17] MEDS: COREG PO SCH ×2 (09:20→22:19)
--- NOTE | 2018-08-17 13:49 | PROGRESS NOTE ---
DATE: 08/17/2018 VITAL SIGNS: Temperature 97.7 degrees, heart rate 89, respirations 20, blood pressure 116/77, O2 saturation on 3 L nasal oxygen 97%. The patient states he feels about the same as yesterday with continued shortness of breath on exertion. He was up to the bathroom a few minutes ago. He seems comfortable, back in bed. There is no ankle edema. Chest x-ray yesterday showed some pleural effusions and worsened pulmonary edema. I and O was -550 last shift. He is eating about 50% of his meals. Dr. Foster suggested thoracentesis on Saturday or Saturday. cc: MD Torito Echols MD
[2018-08-17] MEDS: APRESOLINE PO SCH ×2 (14:41→22:03)
--- NOTE | 2018-08-17 16:26 | CARDIOLOGY PROGRESS NOTE ---
DATE: 08/17/2018 SUBJECTIVE: Mr. Sarmiento is an 88-year-old gentleman with a history of mitral regurgitation. He has no complaints today. No shortness of breath. No pain complaints. PHYSICAL EXAMINATION: Vital signs: He is afebrile, heart rate 89, blood pressure 116/77. His I's and O's seem to be slightly negative for the hospitalization at -395 mL. General: No acute distress. Cardiovascular: He is in a regular rate and rhythm. He has a 2 to 3 out of 6 holosystolic murmur best heard at the apex. No edema. Chest exam: Has reduced breath sounds in the bilateral bases. No increased work of breathing. Abdomen: Soft, nontender. PERTINENT DATA: His INR is 2.1. His sodium is 141, potassium 4.9, BUN 37, creatinine 1.3. His proBNP is 3692. ASSESSMENT: Mr. Sarmiento is an 88-year-old gentleman with atrial fibrillation and suggestive to be severe mitral regurgitation with pleural effusions. PLAN: We will continue to try to diurese the patient. In addition, we have increased his losartan. I will reduce the dose of his Coreg as he has a preserved ejection fraction and try to add in more afterload reduction with hydralazine at 10 t.i.d. I will stop his warfarin as there are tentative plans to perform a thoracentesis. His INR is reducing. cc: MD Torito Medina MD
--- NOTE | 2018-08-17 17:46 | PULMONOLOGY PROGRESS NOTE ---
DATE: 08/17/2018 SUBJECTIVE: The patient is awake and alert. He reports he is doing okay while sitting in the bed, but does get shortness of breath with exertion. OBJECTIVE: Vital Signs: The patient has been afebrile for the last 24 hours. Heart rate 89, respiratory rate 20, blood pressure 116/77, oxygen saturation 97% on 3 L per nasal cannula. HEENT: Pupils are equal and reactive. Oropharynx appears clear. Neck: Supple. Chest: Reveals regular rate. Normal S1, normal S2 with 2/6 systolic murmur left base. Cardiac: S1-S2. Abdomen: Soft. Extremities: Reveal trace edema. LABORATORIES: No new CBC today. Sodium 141, potassium 4.9, chloride 100, bicarbonate 28, BUN 37, creatinine 1.3. ProBNP has decreased from 12,800 to 3692. IMPRESSION: An 88-year-old with: 1. Severe pulmonary hypertension. 2. Hypoxemic respiratory failure. 3. Pleural effusions. 4. Mitral regurgitation. 5. Atrial fibrillation. DISCUSSION: An 88-year-old with problems outlined above. He continues to have dyspnea with limited exertion. His failure may be related to his mitral valve disease, but he is not a candidate for intervention due to his age and dementia. RECOMMENDATIONS: 1. Continue oxygen for hypoxemic respiratory failure. 2. Daily INR levels. 3. Chest x-ray tomorrow. 4. Consider thoracentesis when INR is less than 1.5. cc: MD Torito Judd MD
[2018-08-17] MEDS: LIPITOR PO SCH (22:18)
[2018-08-17] MEDS: HYDROCORTISONE 2.5% LOTION TOP SCH (22:19)
[2018-08-18] MEDS: HYDROCORTISONE 2.5% LOTION TOP SCH ×2 (03:21→23:35)
[2018-08-18 06:46] LABS: INR 1.92; PROTIME 23.4 Seconds (11.0-16.0)
[2018-08-18] MEDS: PROTONIX PO SCH (06:58)
--- NOTE | 2018-08-18 07:01 | Diag Imaging Result Doc PS360 ---
EXAM: CHEST-PORTABLE HISTORY: abnormal exam TECHNIQUE: Portable chest single view COMPARISON: 08/16/2018 FINDINGS: There are [id number] sized bilateral pleural effusions with basilar atelectasis and infiltrates. Infiltrates appear less pronounced than on the prior study. There are sternal wires and heart is borderline mildly enlarged. IMPRESSION: Mild interval improvement. Electronically signed by Luis Antonio Mtz 08/18/2018 6:59 AM
[2018-08-18 07:03] LABS: ALB/GLOB RATIO 1.1; ALBUMIN 3.4 g/dL (3.5-5.0); CALCIUM 9.5 mg/dL (8.8-10.2); CREATININE 1.5 mg/dL (0.7-1.2); MAGNESIUM 1.9 mg/dL (1.5-2.7); POTASSIUM 4.8 mmol/L (3.5-5.1); TOTAL BILIRUBIN 0.86 mg/dL (0.20-1.00); TOTAL PROTEIN 6.4 g/dL (6.3-8.3)
[2018-08-18] MEDS: COREG PO SCH ×2 (09:14→23:34)
[2018-08-18] MEDS: KLOR-CON PO SCH ×2 (09:15→23:34)
[2018-08-18] MEDS: MAG-OX PO SCH (09:15)
[2018-08-18] MEDS: LASIX IV SCH ×2 (09:15→23:34)
[2018-08-18] MEDS: COZAAR PO SCH (09:15)
[2018-08-18] MEDS: FERROUS SULFATE PO SCH ×2 (09:15→10:31)
[2018-08-18] MEDS: ALDACTONE PO SCH ×2 (09:15→23:33)
[2018-08-18] MEDS: APRESOLINE PO SCH ×3 (09:15→23:33)
--- NOTE | 2018-08-18 09:45 | PROGRESS NOTE ---
DATE: 08/18/2018 SUBJECTIVE: Mr. Sarmiento has bilateral pleural effusions with congestive heart failure. He is in chronic atrial fibrillation. INR is 1.92. His BUN is 44, creatinine 1.5. Chest x-ray shows only slight improvement. We will let Dr. Foster decide if we need to do thoracentesis, which made him much better on the previous admission. He is still weak. We are going to start physical therapy on him. -3 cc: Torito Byrd MD
--- NOTE | 2018-08-18 21:58 | PULMONOLOGY PROGRESS NOTE ---
DATE: 08/18/2018 SUBJECTIVE: The patient is awake and alert. He has been moving some in his room. PHYSICAL EXAMINATION: Vital Signs: Temperature 97.2, blood pressure 102/69, heart rate 102, respiratory rate 16, oxygen saturation 94%. HEENT: Pupils are equal and reactive. Oropharynx appears dry. Neck: Supple. Chest: Reveals diminished breath sounds in both lung bases. Cardiac: Irregularly irregular. Normal S1, normal S2. Abdomen: Abdomen is soft. Extremities: Reveal trace edema. LABORATORIES: BUN is 44, creatinine 1.5. Chest x-ray reveals no change in bilateral effusions. IMPRESSION: An 88-year-old with: 1. Severe pulmonary hypertension. 2. Hypoxemic respiratory failure. 3. Pleural effusions. 4. Mitral regurgitation. 5. Atrial fibrillation. PLAN: 1. Continue diuretics as tolerated. 2. Continue oxygen for hypoxemic respiratory failure. 3. We will schedule thoracentesis when the INR is less than 1.5. cc: MD Torito Judd MD
[2018-08-18] MEDS: LIPITOR PO SCH (23:33)
[2018-08-19] MEDS: PROTONIX PO SCH (06:18)
[2018-08-19 06:19] LABS: INR 1.68; PROTIME 21.1 Seconds (11.0-16.0)
[2018-08-19] MEDS: APRESOLINE PO SCH ×3 (08:36→21:26)
[2018-08-19] MEDS: HYDROCORTISONE 2.5% LOTION TOP SCH ×2 (08:37→21:25)
[2018-08-19] MEDS: ALDACTONE PO SCH ×2 (08:37→21:25)
[2018-08-19] MEDS: COREG PO SCH ×2 (08:38→21:26)
[2018-08-19] MEDS: COZAAR PO SCH (08:38)
[2018-08-19] MEDS: LASIX IV SCH ×2 (08:38→21:26)
[2018-08-19] MEDS: FERROUS SULFATE PO SCH ×2 (08:39)
[2018-08-19] MEDS: KLOR-CON PO SCH ×2 (08:39→21:26)
[2018-08-19] MEDS: MAG-OX PO SCH (08:40)
--- NOTE | 2018-08-19 11:07 | PROGRESS NOTE ---
DATE: 08/19/2018 Mr. Sarmiento's INR this morning is 1.68. Electrolytes are stable. Chest x-ray does not show much improvement. He probably is going to get a thoracentesis as soon as his INR comes down to less than 1.5. -0 cc: MD Hair Dunham MD
--- NOTE | 2018-08-19 19:19 | PROGRESS NOTE ---
DATE: 08/19/2018 SUBJECTIVE: The patient continues without shortness of breath or chest discomfort on supplemental oxygen. OBJECTIVE: Vital signs: Blood pressure 98/50, heart rate 74, oxygen saturation 96% on nasal cannula oxygen. Neck: Jugular venous distention cannot be appreciated. Chest: Auscultation of the chest reveals diminished breath sounds at the bases bilaterally. Cardiac Exam: Reveals an irregular rate and rhythm without appreciable murmur or gallop. Abdomen: Soft. Bowel sounds are normal. Extremities: Demonstrate trace edema. LABORATORY DATA: Includes pro time 21.1, INR 1.68. IMPRESSION: 1. Hypoxemic respiratory failure with congestive heart failure and bilateral pleural effusions. 2. Severe pulmonary hypertension. 3. Mitral regurgitation. 4. Chronic atrial fibrillation. RECOMMENDATIONS: 1. Continue diuretics at current rate. 2. Agree with plans for thoracentesis once INR is less than 1.5. 3. Conservative cardiovascular management overall. cc: MD Torito Low MD
[2018-08-19] MEDS: LIPITOR PO SCH (21:26)
--- NOTE | 2018-08-20 04:09 | PULMONOLOGY PROGRESS NOTE ---
DATE: 08/19/2018 SUBJECTIVE: The patient is awake and alert. He reports some shortness of breath with movement during the day. OBJECTIVE: VITAL SIGNS: The patient has been afebrile for the last 24 hours. Blood pressure 98/50, heart rate 111, respiratory rate 15, oxygen saturation 96% on 3 L per nasal cannula. HEENT: Pupils are equal and reactive. Oropharynx clear. Neck: Supple. Chest: Reveals decreased breath sounds both lung bases. Cardiac Exam: S1, S2 with a regular rhythm. Abdomen: Soft. Extremities: Reveal minimal edema. LABORATORIES: INR has decreased to 1.68. IMPRESSION: An 88-year-old with: 1. Severe pulmonary hypertension. 2. Bilateral pleural effusions, right greater than left. 3. Hypoxemic respiratory failure. 4. Chronic atrial fibrillation. 5. Mitral regurgitation. 6. Component of dementia. DISCUSSION: An 88-year-old with problems outlined above. The patient has reached the point that he is no longer diuresing. At this juncture, his INR should be less than 1.5 tomorrow. PLAN: 1. Schedule thoracentesis for tomorrow morning and request the radiologist perform. 2. Labs have been entered for appropriate pleural fluid studies. 3. Overall prognosis is poor given his failure to diurese. cc: MD Torito Judd MD
[2018-08-20 06:01] LABS: INR 1.42; PROTIME 18.4 Seconds (11.0-16.0)
[2018-08-20] MEDS: PROTONIX PO SCH (06:11)
--- NOTE | 2018-08-20 09:23 | Diag Imaging Result Doc PS360 ---
EXAM: CHEST-2 VIEWS INDICATION: TO FOLLOW THORA TECHNIQUE: 2 views COMPARISON: 08/18/2018 FINDINGS: There has been interval marked improvement of the right pleural effusion status post thoracentesis. No significant residual pleural fluid is identified by plain radiograph. There is mild residual atelectasis at the right lung base. No pneumothorax is identified. The smaller left effusion is essentially stable. Cardiac silhouette is stable. IMPRESSION: No evidence of pneumothorax status post right thoracentesis. Electronically signed by Asa Schilling 08/20/2018 9:21 AM
[2018-08-20] MEDS: FERROUS SULFATE PO SCH ×2 (09:38→10:24)
[2018-08-20] MEDS: ALDACTONE PO SCH ×2 (09:38→23:36)
[2018-08-20] MEDS: COZAAR PO SCH (09:38)
[2018-08-20] MEDS: MAG-OX PO SCH (09:38)
[2018-08-20] MEDS: APRESOLINE PO SCH ×3 (09:38→16:30)
[2018-08-20] MEDS: COREG PO SCH ×2 (09:38→23:38)
[2018-08-20] MEDS: KLOR-CON PO SCH ×2 (09:38→23:55)
--- NOTE | 2018-08-20 09:45 | PROGRESS NOTE ---
DATE: 08/20/2018 SUBJECTIVE: Mr. Sarmiento's INR was less than 1.5. It was 1.42 today and I think he is probably ready for the paracentesis. His vital signs are stable. He has congestive heart failure with bilateral pleural effusion. -6 cc: Torito Byrd MD
--- NOTE | 2018-08-20 10:03 | Diag Imaging Result Doc PS360 ---
EXAM: US THORACENTESIS W/IMAGE GUIDE INDICATION: Right sided effusion TECHNIQUE: COMPARISON: 10/12/2017 FINDINGS: Risks, benefits, and alternatives were discussed with the patient and informed consent was obtained. The patient was prepped and draped in sterile fashion and local anesthesia was achieved with 1% lidocaine solution. Using ultrasound guidance, a large bore catheter was inserted into the right pleural space and approximately 1450 mL of dark tracey fluid was aspirated. There were no known complications. A postprocedural chest radiograph showed no pneumothorax. IMPRESSION: Technically successful ultrasound-guided right thoracentesis. Electronically signed by Asa Schilling 08/20/2018 10:01 AM
[2018-08-20] MEDS: LASIX IV SCH (10:18)
--- NOTE | 2018-08-20 10:37 | PROGRESS NOTE ---
DATE: 08/20/2018 SUBJECTIVE: Patient denies shortness of breath or chest discomfort on supplemental oxygen per nasal cannula. OBJECTIVE: Vital signs: Blood pressure 117/72, heart rate 110, oxygen saturation ranges from 92 to 100 percent. Jugular venous distention suggests normal central venous pressure. Chest: Clear to auscultation following a recent thoracentesis on the right. Cardiac: Reveals a regular rate and rhythm without appreciable murmur or gallop. There is no evidence of peripheral edema. IMPRESSION: 1. Hypoxemic respiratory failure with congestive heart failure and pleural effusions, right greater than left. Patient clinically improved with diuresis and right-sided thoracentesis. 2. Severe pulmonary hypertension. 3. Mitral regurgitation. 4. Chronic atrial fibrillation. RECOMMENDATIONS: 1. Transition to oral Lasix. 2. Conservative cardiovascular plans overall. 3. Continue long-term anticoagulation. cc: MD Torito Low MD
[2018-08-20 11:02] LABS: BODY FLUID SOURCE PLEURAL FLUID; POLYS 26 %; SPECIMEN PLEURAL FLUID; WBC BF 213 /cumm
[2018-08-20 11:03] LABS: MONOS 74 %
[2018-08-20] MEDS: HYDROCORTISONE 2.5% LOTION TOP SCH ×2 (11:27→23:55)
[2018-08-20 11:59] LABS: AMYLASE BODY FLUID 22 U/L; GLUCOSE BODY FLUID 123 mg/dL; LDH BODY FLUID 99 U/L; TOTAL PROT BODY FLUID 2.4 g/dL
[2018-08-20] MEDS ORDERED: NS 1,000 ML IV SCH (23:00)
[2018-08-20] MEDS: LIPITOR PO SCH (23:55)
--- NOTE | 2018-08-21 03:11 | PULMONOLOGY PROGRESS NOTE ---
DATE: 08/20/2018 SUBJECTIVE: The patient is awake, alert, and conversant. He reports his shortness of breath has diminished following thoracentesis. OBJECTIVE: Blood pressure 117/72, heart rate 117, respiratory rate 22, oxygen saturation 92% on nasal cannula.HEENT: Pupils are equal and reactive. Oropharynx is clear. Neck: Supple. Chest: Reveals better air flow in the right base. Cardiac: S1, S2. Abdomen: Soft without hepatosplenomegaly. Extremities: Without edema. LABORATORIES: Chest x-ray following thoracentesis reveals near complete evacuation of pleural fluid on the right, has small effusion on the left. Chemistries from the pleural fluid, glucose 123, total protein 2.4, LDH 99, amylase 22, pH 7.10 with 213 polymorphonuclear cells. IMPRESSION: An 88-year-old with: 1. Severe pulmonary hypertension. 2. Significant radiographic improvement following thoracentesis. 3. Heart failure with transudative effusion. 4. Hypoxemic respiratory failure. 5. Mitral regurgitation, chronic atrial fibrillation. 6. Dementia. DISCUSSION: An 88-year-old with problems outlined above. He has had fluid removed and clinically, he is improved. It is anticipated that he will have a slow decline and recurrence of his pleural effusions. RECOMMENDATIONS: 1. Small fluid bolus. It appears he is mildly hypotensive this evening. 2. Continue oxygen therapy. 3. Anticipate discharge soon now that he is approaching maximum hospital benefit. cc: MD Torito Judd MD
[2018-08-21] MEDS: PROTONIX PO SCH (06:27)
[2018-08-21 06:42] LABS: INR 1.28
[2018-08-21] MEDS: KLOR-CON PO SCH ×2 (09:24→21:12)
[2018-08-21] MEDS: FERROUS SULFATE PO SCH ×2 (09:24→09:26)
[2018-08-21] MEDS: ALDACTONE PO SCH ×2 (09:24→21:13)
[2018-08-21] MEDS: LASIX PO SCH (09:25)
[2018-08-21] MEDS: COREG PO SCH ×2 (09:25→21:15)
[2018-08-21] MEDS: MAG-OX PO SCH (09:25)
[2018-08-21] MEDS: COZAAR PO SCH (09:27)
[2018-08-21] MEDS: APRESOLINE PO SCH ×3 (09:27→17:50)
[2018-08-21] MEDS: HYDROCORTISONE 2.5% LOTION TOP SCH ×2 (09:28→21:13)
--- NOTE | 2018-08-21 10:13 | PROGRESS NOTE ---
DATE: 08/21/2018 Mr. Sarmiento had about 1460 mL of fluid drawn from the right side of chest. He is feeling much better. I am going to repeat the electrolytes as well as chest x-ray in the morning, and then probably discharge him. -9 cc: Torito Byrd MD
[2018-08-21] MEDS: LIPITOR PO SCH (21:12)
[2018-08-22 07:08] LABS: ESTIMATED GFR > 60; INR 1.19; PROTIME 16.1 Seconds (11.0-16.0)
[2018-08-22 07:10] LABS: AGAP 6; BUN 58 mg/dL (8-22); CALCIUM 9.8 mg/dL (8.8-10.2); CHLORIDE 98 mmol/L (98-107); COSMO 292; CREATININE 1.1 mg/dL (0.7-1.2); GLUCOSE 104 mg/dL (70-104); POTASSIUM 5.1 mmol/L (3.5-5.1); SODIUM 138 mmol/L (136-145); TCO2 34 mmol/L (25-35)
--- NOTE | 2018-08-22 08:12 | PULMONOLOGY PROGRESS NOTE ---
DATE: 08/21/2018 SUBJECTIVE: The patient is awake, alert, and conversant. He denies shortness of breath. The patient's blood pressure was marginally low last evening and he did receive a fluid bolus. OBJECTIVE: Vital Signs: The patient has been afebrile for the last 24 hours. Blood pressure 96/53, heart rate 75, respiratory rate 16, oxygen saturation 100% on 2 L per nasal cannula. HEENT: Pupils are equal and reactive. Oropharynx is clear. Neck is supple. Chest: Reveals crackles in both lung bases. Cardiac Exam: S1-S2. Abdomen: Soft. Extremities: Reveal trace edema. LABS: No new chemistries or chest x-ray today. IMPRESSION: An 88-year-old with: 1. Recurrent heart failure with transudative pleural effusions. 2. Severe pulmonary hypertension. 3. Heart failure related to mitral regurgitation and chronic atrial fibrillation. 4. Hypoxemic respiratory failure. 5. Dementia. DISCUSSION: An 88-year-old with problems outlined above. The patient might benefit from a MitraClip but is not a candidate due to his age, performance status, and dementia. If his pleural effusions reoccur, there are limited options and hospice would be recommended. RECOMMENDATION: 1. Chemistries and chest x-ray ordered by Dr. Byrd tomorrow. 2. Anticipate discharge soon as patient has reached his maximum hospital benefit with limited options left for improving his prognosis. cc: MD Torito Judd MD
--- NOTE | 2018-08-22 08:38 | Diag Imaging Result Doc PS360 ---
CHEST-2 VIEWS - 08/22/2018 INDICATION: chf COMPARISON: 08/20/2018 FINDINGS: Stable CABG changes. Stable mild cardiomegaly. Stable airspace opacification of the left lower lobe consistent with infiltrate and possibly a trace effusion. There is some persistent mild linear atelectasis in the right lung base that has improved. IMPRESSION: Little change from prior. No new abnormality. Electronically signed by Delonte Varela 08/22/2018 8:36 AM
[2018-08-22] MEDS: ALDACTONE PO SCH (09:13)
[2018-08-22] MEDS: COREG PO SCH (09:14)
[2018-08-22] MEDS: KLOR-CON PO SCH (09:14)
[2018-08-22] MEDS: FERROUS SULFATE PO SCH ×2 (09:14→09:16)
[2018-08-22] MEDS: APRESOLINE PO SCH (09:14)
[2018-08-22] MEDS: LASIX PO SCH (09:14)
[2018-08-22] MEDS: MAG-OX PO SCH (09:14)
[2018-08-22] MEDS: HYDROCORTISONE 2.5% LOTION TOP SCH (09:16)
[2018-08-22] MEDS: COZAAR PO SCH (09:16)
--- NOTE | 2018-08-22 11:51 | PROGRESS NOTE ---
DATE: 08/22/2018 Mr. Sarmiento's chest x-ray shows about the same. His pleural fluid did not show any growth. Overall condition is otherwise unchanged. I personally feel like his chest x- ray shows significant improvement, considering, and he will be discharged today. The fluid glucose was 123. Total protein was 2.4. LDH was 99, indicating a transudate. So far, we have not seen any culture growth on the fluid culture. We will discharge him today. -6 cc: Torito Byrd MD MTDD
[2018-08-22 12:24] VITALS: BP 97/59
--- NOTE | 2018-08-23 14:44 | DISCHARGE SUMMARY ---
ADMISSION DATE: 08/14/2018 DISCHARGE DATE: 08/22/2018 HOSPITAL COURSE: Mr. Sarmiento, who is an 88-year-old white gentleman, was admitted with severe congestive heart failure. He had bilateral pleural effusion. Laboratory data in the hospital: He had a chest x-ray which showed bilateral effusion. EKG showed atrial fibrillation. The chest x-rays were repeated and he had cardiology and pulmonary consultation. He was treated with IV Lasix 40 mg twice a day, hydralazine was added to the current regimen. Thoracentesis was done on the right side, and about 1200 mL of fluid was drained. The patient tolerated it well. He has improved since then and he was discharged. FINAL DIAGNOSES: 1. Acute on chronic congestive heart failure. 2. Acute systolic congestive heart failure with bilateral pleural effusion status post thoracentesis. His chest x-ray looks significantly better now. PLAN: We will discharge him today. cc: Torito Byrd MD
== END 2018-08-22 13:40 | disposition home health service (06) | DRG 292 ==
LOC: ED 07:46 → 4N 11:54
PROVIDERS: ADMIT Internal Medicine; ATTEND Internal Medicine
CPT/HCPCS: 32421; 32555; 36415; 71010; 71020; 71045; 71046; 80048; 80053; 80162; 82150; 82945; 83615; 83735; 83880; 83986; 84157; 84484; 85025; 85610; 87070; 87102; 87116; 87147; 87205; 87206; 89051; 93005; 93010; 94761; 97161; 99285; A9270; J1940; J7030

== ENCOUNTER 2018-09-01 11:22 | Observation (INO) ==
[2018-09-01 12:25] LABS: ALB/GLOB RATIO 1.2; ALBUMIN 3.4 g/dL (3.5-5.0); CALCIUM 9.3 mg/dL (8.8-10.2); CREATININE 1.2 mg/dL (0.7-1.2); POTASSIUM 4.9 mmol/L (3.5-5.1); TOTAL BILIRUBIN 0.94 mg/dL (0.20-1.00); TOTAL PROTEIN 6.3 g/dL (6.3-8.3)
[2018-09-01 12:46] LABS: BASO# 0.01 X1000 (0.0-0.2); BASO% 0.2 % (0.0-0.8); EOS# 0.04 X1000 (0.0-0.7); EOS% 0.6 % (0.0-10.0); HEMATOCRIT 36.1 % (42.0-52.0); HEMOGLOBIN 12.1 g/dL (14.0-18.0); LYMPH# 0.29 X1000 (1.2-3.4); LYMPH% 4.4 % (20.5-51.1); MCH 30.9 PG (27-31); MCHC 33.5 g/dL (33-37); MCV 92.3 FL (81-99); MONO# 0.58 X1000 (0.11-0.59); MONO% 8.8 % (1.7-9.3); MPV 11.6 FL (7.4-10.4); NEUT# 5.66 X1000 (1.4-6.5); PLT 103 X1000 (130-400); RBC 3.91 XMIL (4.7-6.1); WBC 6.58 X1000 (4.8-10.8)
[2018-09-01] MEDS ORDERED: ZOFRAN IV PRN (13:27)
[2018-09-01] MEDS ORDERED: TYLENOL PO PRN (13:27)
--- NOTE | 2018-09-01 13:37 | Diag Imaging Result Doc PS360 ---
EXAM: CHEST-PORTABLE 09/01/2018 HISTORY: sob/cp TECHNIQUE: AP portable at 1329 COMMENT: There are bilateral pleural effusions. There is pulmonary edema plus minus pneumonia. None of this was present on 08/22/2018. There is cardiomegaly. IMPRESSION: Pulmonary edema and pleural effusions. Electronically signed by John Leon 09/01/2018 1:34 PM
--- NOTE | 2018-09-01 14:06 | Diag Imaging Result Doc PS360 ---
EXAM: CT HEAD W/O CONTRAST 09/01/2018 HISTORY: syncopy TECHNIQUE: This exam was performed using automated exposure control, adjustment of mA or kV according to patient size, and/or use of iterative reconstruction technique. COMMENT: There are calcifications in the vertebral and internal carotid arteries. There is cerebral atrophy. No evidence of bleed, mass effect, or abnormal extra-axial fluid collection is present. Compared to the previous study of 11/10/2015 the degree of cerebral atrophy may be slightly worse. The calvarium is intact. The visualized paranasal sinuses are clear. IMPRESSION: Cerebral atrophy. Electronically signed by John Leon 09/01/2018 2:03 PM
--- NOTE | 2018-09-01 14:11 | PROVIDER DOCUMENTATION ---
This chart was entered by Shannan Kwan Scribe, acting as scribe for Clement Wilson MD. HPI-Headache - General Chief Complaint: Near Syncope Stated Complaint: SOB, SYNCOPE Time Seen by Provider: 09/01/18 11:46 Source: patient Allergies/Adverse Reactions: Patient Allergies Allergy/AdvReac Type Severity Reaction Status Date / Time amoxicillin trihydrate * Allergy Unknown Unknown Verified 08/14/18 08:21 [From Augmentin] Antihistamines - Alkylamine Allergy Unknown Unknown Verified 08/14/18 08:21 Antihistamines - Ethanolamine Allergy Unknown Unknown Verified 08/14/18 08:21 cefadroxil [Cefadroxil] Allergy Unknown Unknown Verified 08/14/18 08:21 levofloxacin [From Levaquin] Allergy Unknown Unknown Verified 08/14/18 08:21 potassium clavulanate * Allergy Unknown Unknown Verified 08/14/18 08:21 [From Augmentin] codeine AdvReac Severe "makes him Verified 08/14/18 08:21 wild" gatifloxacin [From Tequin] AdvReac Severe weakness Verified 08/14/18 08:21 morphine AdvReac Severe palpatation Verified 08/14/18 08:21 s adhesive AdvReac Intermediate RASH Verified 08/14/18 08:21 Home Medications: Home Medication List Medication Instructions Recorded Confirmed Last Taken Type Magnesium Oxide [Mag-Ox] 400 mg PO DAILY #100 tablet 02/07/14 09/01/18 01/31/16 09:00 Rx Diltiazem [Cardizem] 120 mg PO DAILY 12/08/15 09/01/18 01/31/16 21:00 History Iron 65 mg PO DAILY 01/03/16 09/01/18 01/31/16 09:00 History Potassium Chloride [Klor-Con M20] 20 meq PO BID 11/14/17 09/01/18 Unknown History Furosemide [Lasix] 40 mg PO BID tablet 11/18/17 09/01/18 Unknown Rx Warfarin [Coumadin] 5 mg PO QHS tablet 11/18/17 09/01/18 Unknown Rx Ferrous Sulfate 325 mg PO DAILY tab 08/08/18 09/01/18 Unknown Rx Losartan [Cozaar] 50 mg PO DAILY tab 08/08/18 09/01/18 Unknown Rx Pantoprazole [Protonix] 40 mg PO DAILY@0700 tab 08/08/18 09/01/18 Unknown Rx Spironolactone [Aldactone] 25 mg PO BID tab 08/08/18 09/01/18 Unknown Rx Carvedilol [Coreg] 1 tab PO BID 08/14/18 09/01/18 Unknown History ATORVAstatin [Lipitor] 40 mg PO HS tab 08/22/18 09/01/18 Unknown Rx Carvedilol [Coreg] 3.125 mg PO BID tab 08/22/18 09/01/18 Unknown Rx Hydralazine [Apresoline] 10 mg PO TID tab 08/22/18 09/01/18 Unknown Rx Hydrocortisone 2.5% Lotion 1 ml TOP BID bottle 08/22/18 09/01/18 Unknown Rx Losartan [Cozaar] 100 mg PO DAILY tab 08/22/18 09/01/18 Unknown Rx - History of Present Illness-Headache Nature of Presenting Problem: Patient is a 88 year old male who presents to the ED via EMS with headache and dizziness that started this morning. Patient states symptoms have resolved. Denies chest pain. Headache Location: reports: global Quality of Pain: reports: aching Severity: reports: mild Onset/Duration: reports: this morning Timing: reports: gone now Associated Symptoms: reports: dizziness Similar Symptoms Previously?: No Recently seen or treated by another doctor?: No Review of Systems - Adult - REVIEW OF SYSTEMS - ADULT Constitutional: reports: no symptoms reported. denies: chills, fever, fatique Eyes: reports: no symptoms reported Ears, Nose, Mouth & Throat: reports: no symptoms reported Cardiovascular: reports: no symptoms reported. denies: chest pain, heart murmur, palpitations Respiratory: reports: no symptoms reported Gastrointestinal: reports: no symptoms reported Genitourinary: reports: no symptoms reported Musculoskeletal: reports: no symptoms reported Integumentary: reports: no symptoms reported Neurological: reports: see HPI, dizziness/vertigo (dizziness), headache/migraines (MA). denies: numbness, seizure, syncope Psychiatric: reports: no symptoms reported Endocrine: reports: no symptoms reported Hematologic/Lymphatic: reports: no symptoms reported Allergic/Immunologic: reports: no symptoms reported All Other Systems: Reviewed and Negative Past History - Adult - PAST MEDICAL HISTORY-ADULT Review of Records: reports: Nursing Assessment Review, Medications Reviewed, Social history reviewed & non-contributory. Major Childhood Illnesses: reports: denies history Cardiovascular: reports: A-Fib, CAD, HTN, hyperlipidemia Respiratory: reports: denies history Gastrointestinal: reports: denies history Obstetrical/Gynecological: reports: denies history Genitourinary: reports: denies history Musculoskeletal: reports: denies history Neurological: reports: CVA Endocrine/Immune: reports: denies history Other Conditions: reports: denies history - PRIOR SURGERIES/PROCEDURES Surgical/Procedure History: reports: CABG, cholecystectomy - IMMUNIZATION STATUS Childhood Immunizations: See Nurse Assessment Flu Vaccine: See Nurse Assessment - FAMILY HISTORY Family History: reviewed, not pertinent - SOCIAL HISTORY Smoking: denies Substance Use: denies Physical Exam- Neurological - Physical Exam-Neuro Initial Vital Signs Reviewed: Yes General Appearance: alert, no apparent distress, thin. negative: lethargic, slow to respond Eye Exam: bilateral eye: normal inspection HENMT: normocephalic/atraumatic, moist mucous membranes. negative: angioedema, hearing deficit Head Injury: no evidence of injury. negative: ecchymosis, lacerations Neck: normal inspection. negative: limited range of motion, lymphadenopathy Respiratory: chest non-tender, lungs clear, normal breath sounds. negative: crackles, rhonchi, stridor Cardiovascular: normal peripheral pulses, regular rate, rhythm. negative: tachycardia, systolic murmur Abdominal Exam: normal bowel sounds, non tender, soft. negative: guarding, re bound Extremity: non-tender, normal inspection. negative: deformity, erythema, swelling liner replacer Exam: normal hearing, normal speech, PERRL. negative: abnormal speech, facial droop Neurologic: grossly normal. negative: aphasia, facial droop Integumentary: normal color, normal turgor. negative: cyanosis, ecchymosis, erythema Psych/Mental Status: normal mood/affect, oriented x 3. negative: anxious, paranoid - Glascow Coma Scale Best Eye Response: (4) open spontaneously Best Verbal Response: (5) oriented Best Motor Response: (6) obeys commands Total Glascow Score: 15 Progress - PLAN OF CARE/RESULTS Progress/Plan/Lab Results: Vital Signs - 8 hr 09/01/18 11:33 09/01/18 11:35 Temperature 98.2 F Pulse Rate 100 H 93 H Respiratory Rate 17 Blood Pressure 110/79 110/79 O2 Sat by Pulse Oximetry 97 97 Laboratory Results - last 24 hr 09/01/18 09/01/18 12:00 12:00 WBC 6.58 RBC 3.91 L Hgb 12.1 L Hct 36.1 L MCV 92.3 MCH 30.9 MCHC 33.5 RDW Std Deviation 15.0 H Plt Count 103 L MPV 11.6 H Immature Gran % (Auto) 0.0 Neut % (Auto) 86.0 H Lymph % (Auto) 4.4 L [place] % (Auto) 8.8 Eos % (Auto) 0.6 Baso % (Auto) 0.2 Immature Gran # (Auto) 0.00 Neut # (Auto) 5.66 Lymph # (Auto) 0.29 L [place] # (Auto) 0.58 Eos # (Auto) 0.04 Baso # (Auto) 0.01 Sodium 140 Potassium 4.9 Chloride 105 Carbon Dioxide 24 L Anion Gap 11 BUN 42 H Creatinine 1.2 Estimated GFR/1.73 m2 57 BUN/Creatinine Ratio 35 Glucose 126 H Calculated Osmolality 291 Calcium 9.3 Total Bilirubin 0.94 AST 15 ALT 15 Alkaline Phosphatase 98 Total Protein 6.3 Albumin 3.4 L Globulin 2.9 Albumin/Globulin Ratio 1.2 Orders Category Date Time Status Admit - [facility] Routine AdmDCTranf 09/01/18 13:26 Active Activity - Bed Rest with BRP ORDERED Care 09/01/18 13:27 Active Vital Signs Order ROUTINE Care 09/01/18 13:27 Active Regular Diet Diet 09/01/18 13:28 Active CHEST-PORTABLE [RAD] Stat Exams 09/01/18 13:[address] HEAD W/O CONTRAST [CT] Stat Exams 09/01/18 13:22 Ordered CBC WITH ELECTRONIC DIFF [HEME] Stat Lab 09/01/18 12:00 Completed CMP [COMPREHENSIVE METABOLIC PANEL] [CHEM] Stat Lab 09/01/18 12:00 Completed Cardiac Profile [CK PROFILE] [SP CHEM] Stat Lab 09/01/18 12:00 Received TROPONIN T Stat Lab 09/01/18 12:00 Received URINALYSIS W/POSS RFLX CULT [URINALYSIS] Stat Lab 09/01/18 11:53 Uncollected Acetaminophen [Tylenol] Med 09/01/18 13:27 Ordered 650 mg PO Q6H PRN PRN Ondansetron [Zofran] Med 09/01/18 13:27 Ordered 4 mg IV Q4H PRN PRN EKG [EKG] Stat Ther 09/01/18 13:24 Ordered Transfer/Admit Order [TRANSFER] Routine Transfer 09/01/18 13:25 Ordered Result Diagrams: 09/01/18 12:00 09/01/18 12:00 - EKG 1 Time of EKG reading by physician:: 13:33 EKG Read and Signed by:: Clement Wilson EKG Interpretation (*Must complete 3 of following elements*): Abnormal Rate: 106 Rhythm: atrial fibrillation with rapid ventricular response [place]: normal Comments: abnormal ECG - XRAY 1 XRAY Study: Chest Impression: See EMR Report (EXAM: CHEST-PORTABLE 09/01/2018 HISTORY: sob/cp TECHNIQUE: AP portable at 1329 COMMENT: There are bilateral pleural effusions. There is pulmonary edema plus minus pneumonia. None of this was present on 08/22/2018. There is cardiomegaly. IMPRESSION: Pulmonary edema and pleural effusions. Electronically signed by John Leon 09/01/2018 1:34 PM 09/01/18 1334 Interpreting Physician: John Leon MD Dictated Date/Time: 09/01/18 1334 cc: Clement Wilson MD; Torito Byrd MD) - CONSULTS/PCP/HOSPITALIST Notification #1 *Consult/PCP/Hospitalist*: Dr. Byrd Time Discussed: 13:23 Reason/Comments: Dr. Wilson consulted with Dr. Byrd about patient. Consult Disposition: Admit (and order a head CT) Departure - Departure Date of Disposition Decision: 09/01/18 Time of Disposition Decision: 13:23 DIAGNOSIS: Syncope Disposition: ADMITTED INPATIENT 09 Certified Medical Emergency: Emergent Condition: Fair Referrals and Follow-Ups: Torito Byrd MD [Primary Care Provider] - - Critical Care Note This patient required my direct & personal management of CC.: No Attestation - Physician/ JOSE Attestation The physician spent face to face time with patient:: Yes Advanced Practice Provider documentation review:: Supervising physician onsite and consulted in the evaluation and care of this patient. The physician did have a face to face encounter with the patient. This chart was documented by the indicated scribe, (Shannan Kwan, Aisha) and accurately reflects the services I performed and decisions made by me, Clement Miles MD, as attested by the provider's signature.
--- NOTE | 2018-09-01 14:55 | EKG Report ---
Test Performed on : 09/01/2018 1:33:19 PM Test Reason : syncopy Blood Pressure : / mmHG Vent. Rate : 106 BPM Atrial Rate : 063 BPM P-R Int : 000 ms QRS Dur : 090 ms QT Int : 340 ms P-R-T Axes : 000 062 068 degrees QTc Int : 451 ms Atrial fibrillation. with rapid ventricular response. Abnormal ECG When compared with ECG of 15-AUG-2018 15:01, Vent. rate has increased BY 43 BPM Unconfirmed Result
--- NOTE | 2018-09-01 18:49 | HISTORY AND PHYSICAL ---
Mr. Sarmiento who is a 88-year-old white gentleman was recently discharged from the hospital for congestive heart failure, bilateral pleural effusion, has been staying dizzy. He was found hypotensive and we had to adjust on some of his medication. However he is feeling very dizzy and he was seen in the emergency room. He was very unsteady in his gait and hence we decided to admit him for observation. He has a known case of coronary artery disease, had CABG done in and he has been in chronic atrial fibrillation for long time on Coumadin and during his last admission he had pleural tapping about 1400 mL pleural fluid was drained. He denies having any blurred vision. He does intermittently get mentally confused however no recent history of mental confusion or seizures. MEDICATIONS: Include carvedilol 3.125 mg b.i.d., atorvastatin 40 mg daily, Cardizem 60 mg b.i.d., ferrous sulfate 325 mg daily, Lasix 40 mg b.i.d., hydralazine 10 mg t.i.d., hydrocortisone lotion on the legs and 18 mg daily, losartan 50 mg daily, magnesium oxide 400 mg daily, pantoprazole 40 mg daily, potassium chloride 20 mEq b.i.d., spironolactone 25 mg b.i.d., warfarin 5 mg and 6 mg every other day. REVIEW OF SYSTEMS: Other than the severe dizziness with nausea, vomiting is noncontributory. PHYSICAL EXAMINATION: VITAL SIGNS: Reveal temperature normal, pulse 73 per minute, irregularly irregular, respiratory rate 20 per minute, blood pressure was 139/48. HEENT: Head normocephalic. PERRLA. Fundus examination not done. Neck supple, JVP normal. ENT examination unremarkable. There is no nystagmus noted. There is no evidence of lymphadenopathy, thyroid enlargement, pedal edema, calf tenderness, anemia, cyanosis or clubbing. Pedal pulses well felt. Breast exam normal. CHEST: Normal inspection. LUNGS: Clear on auscultation except for poor air entry at the bases. PMI in the normal position. HEART: Sounds normal. No murmur, gallop or rub noted. Abdomen and chest reveals a midline scar. Abdomen nondistended. Hernial orifices normal. No guarding, rigidity, free fluid, masses, organomegaly. Bowel sounds normal. RECTAL: Deferred . 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 Cranial nerves normal. Motor and sensory system examination unremarkable. Deep tendon reflexes normal. Plantars downgoing. Skull and spine examination normal for age. No cerebellar signs or signs of meningeal irritation, locomotor exam, skin exam unremarkable except for minimal dehydration on account of Lasix therapy and mild anemia. CLINICAL IMPRESSION: Severe dizziness, rule out cerebrovascular accident or carotid or vertebral lesion. Plan to get carotid flow studies, a CAT scan. cc: Torito Byrd MD [facility]
[2018-09-01 20:47] LABS: INR 1.14; PROTIME 15.6 Seconds (11.0-16.0)
[2018-09-01] MEDS: APRESOLINE PO SCH (21:36)
[2018-09-01] MEDS: LASIX PO SCH (21:36)
[2018-09-01] MEDS: COREG PO SCH (21:36)
[2018-09-01] MEDS: ALDACTONE PO SCH (21:36)
[2018-09-01] MEDS: LIPITOR PO SCH (21:36)
[2018-09-01] MEDS: KLOR-CON PO SCH (21:36)
[2018-09-01] MEDS: HYDROCORTISONE 2.5% LOTION TOP SCH (21:37)
[2018-09-01 23:25] LABS: URINE SOURCE CLEAN CATCH
[2018-09-01 23:29] LABS: BILIRUBIN URINE NEGATIVE (NEGATIVE); BLOOD URINE MODERATE (NEGATIVE); COLOR YELLOW; GLUCOSE URINE NEGATIVE (NEGATIVE); KETONE URINE NEGATIVE (NEGATIVE); LEUKOCYTES URINE NEGATIVE (NEGATIVE); NITRITE URINE NEGATIVE (NEGATIVE); PROTEIN URINE 100 mg/dL (NEGATIVE); SP GRAVITY URINE 1.021; TURBIDITY URINE CLEAR (CLEAR); UROBILINOGEN URINE NORMAL (NORMAL)
[2018-09-01 23:31] LABS: UR EPITHELIAL CELLS <10 /HPF (<10); URINE BACTERIA NEGATIVE /HPF; URINE RBC TNTC /HPF (<10); URINE WBC <10 /HPF (<10)
[2018-09-01 23:53] LABS: URINE CASTS NONE SEEN; URINE CRYSTALS NONE SEEN; URINE SMALL ROUND CELLS NONE SEEN; URINE YEAST NONE SEEN
[2018-09-02] MEDS ORDERED: COUMADIN PO SCH (00:30)
[2018-09-02] MEDS: PROTONIX PO SCH (06:30)
[2018-09-02 07:40] LABS: INR 1.18
[2018-09-02 07:43] LABS: CALCIUM 9.6 mg/dL (8.8-10.2); CREATININE 1.4 mg/dL (0.7-1.2); POTASSIUM 4.7 mmol/L (3.5-5.1)
[2018-09-02] MEDS ORDERED: FERROUS SULFATE PO SCH (09:00)
--- NOTE | 2018-09-02 09:10 | PROGRESS NOTE ---
DATE: 09/02/2018 SUBJECTIVE: Mr. Sarmiento is doing fairly well. His vital signs are stable. Heart rate is around 104. His dizziness has improved. He has gone for carotid flow studies. We will evaluate him later. -6 cc: Torito Byrd MD
[2018-09-02] MEDS: KLOR-CON PO SCH ×2 (10:20→21:34)
[2018-09-02] MEDS: COREG PO SCH ×2 (10:20→21:34)
[2018-09-02] MEDS: LASIX PO SCH ×2 (10:20→21:34)
[2018-09-02] MEDS: FERROUS SULFATE PO SCH (10:20)
[2018-09-02] MEDS: COZAAR PO SCH (10:21)
[2018-09-02] MEDS: ALDACTONE PO SCH ×2 (10:21→21:34)
[2018-09-02] MEDS: CARDIZEM PO SCH (10:21)
[2018-09-02] MEDS: APRESOLINE PO SCH ×2 (10:21→14:10)
[2018-09-02] MEDS: MAG-OX PO SCH (10:21)
[2018-09-02] MEDS: HYDROCORTISONE 2.5% LOTION TOP SCH ×2 (10:23→21:34)
[2018-09-02] MEDS: LIPITOR PO SCH (21:34)
[2018-09-03] MEDS: PROTONIX PO SCH (06:31)
[2018-09-03 07:57] VITALS: BP 93/56
--- NOTE | 2018-09-03 08:46 | Carotid Study ---
DATE: 09/01/2018 PROCEDURE: Bilateral carotid ultrasound study. REQUESTING PHYSICIAN: Torito Byrd MD. INTERPRETING PHYSICIAN: Ifeanyi Chester MD. TECH: [employer]. INDICATIONS: 1. Dizziness. 2. History of strokes. EQUIPMENT: [employer] E9 ultrasound system with a 9LD transducer. OBSERVED DATA RIGHT LEFT Brachial Blood Pressure Carotid Pulse Bruits: Carotid/Sub DIAGRAM OF ULTRASOUND IMAGING R L RIGHT INT EXT INT EXT LEFT Joni (cm/s) Joni (cm/s) Subclavian 56/2 Subclavian 54/0 CCA Proximal 51/5 CCA Proximal 50/5 CCA Distal 40/7 CCA Distal 45/5 Bulb 73/4 Bulb 48/9 ICA Proximal 55/12 ICA Proximal 35/12 ICA Mid 42/9 ICA Mid 62/21 ICA Distal 61/13 ICA Distal 64/16 ECA 70/0 ECA 149/11 Vertebral 35/4 A Vertebral 40/12 A ICA/CCA Ratio 1.21 ICA/CCA Ratio 0.28 % Stenosis 0-39% % Stenosis 0-39% FINDINGS: Very tortuous vessels noted to bilateral carotid arteries. This may limit the interpretative ability of the study, but by strict velocity criteria no hemodynamically significant flow-limiting stenosis. Both vertebral arteries are antegrade flow. PHYSICIAN INTERPRETATION: Although there are tortuous vessels, which may limit interpretative ability of the study, by strict velocity criteria there is no hemodynamically significant flow- limiting stenosis. cc: MD Torito Kunz MD
--- NOTE | 2018-09-03 09:06 | PROGRESS NOTE ---
DATE: 09/03/2018 SUBJECTIVE: Mr. Sarmiento is doing better. His electrolyte status is about normal. BUN and creatinine are almost unchanged. Urine shows some RBCs. The carotid flow studies are not back. He is stable, and I personally feel like we are going to discharge him. Once we find out about the carotid flow results, we may make changes in the management. -4 cc: Torito Byrd MD
[2018-09-03] MEDS: CARDIZEM PO SCH (09:35)
[2018-09-03] MEDS: ALDACTONE PO SCH (09:35)
[2018-09-03] MEDS: HYDROCORTISONE 2.5% LOTION TOP SCH (09:36)
[2018-09-03] MEDS: MAG-OX PO SCH (09:36)
[2018-09-03] MEDS: COREG PO SCH (09:36)
[2018-09-03] MEDS: KLOR-CON PO SCH (09:36)
[2018-09-03] MEDS: FERROUS SULFATE PO SCH (09:36)
[2018-09-03] MEDS: LASIX PO SCH (09:36)
[2018-09-03] MEDS: COZAAR PO SCH (09:36)
--- NOTE | 2018-09-03 20:39 | DISCHARGE SUMMARY ---
ADMISSION DATE: 09/01/2018 DISCHARGE DATE: 09/03/2018 HISTORY OF PRESENT ILLNESS: Mr. Sarmiento, who was 88-year-old white gentleman, was admitted with generalized weakness and severe dizziness. LABORATORY DATA: In the hospital his EKG showed atrial fibrillation. Patient had scan of the head that had revealed cerebral atrophy. There was some calcification in the vertebral and internal carotid arteries. A chest x-ray again revealed bilateral pleural effusion with pulmonary edema. The lab revealed hemoglobin 12.1, hematocrit 36.1. INR was 1.18. Electrolytes were stable. BUN was 42. Creatinine 1.2. It went up to 48 and 1.4 partly on account of the Lasix therapy. Urinalysis revealed some RBCs. COURSE IN THE HOSPITAL: Mr. Sarmiento was initially treated with his regular medications. He was kept on telemetry. Carotid flow studies are done. Neuro checks were done. We do not have the carotid flow study results. He is feeling better. He is stable. We will discharge him today. FINAL DIAGNOSES: Severe dizziness. He has dizziness while he is in bed, so orthostatic hypotension is partly ruled out. He has cerebral atrophy and possibly microvascular ischemia which could be responsible for the dizziness. He could of some vertebral insufficiency. Carotid and vertebral flow study results are still not back. cc: Torito Byrd MD
[2018-09-04] MEDS ORDERED: COUMADIN PO SCH (21:00)
== END 2018-09-03 09:49 | disposition home health service (06) ==
LOC: SUPCPDRO → ED 11:22 → 3N 11:22
PROVIDERS: ADMIT Internal Medicine; ATTEND Internal Medicine
CPT/HCPCS: 70450; 71010; 71045; 80048; 80053; 81001; 82550; 84484; 85025; 85610; 93005; 93880; A9270

== ENCOUNTER 2018-09-07 08:00 | Inpatient (IN) ==
--- NOTE | 2018-09-07 08:23 | PROVIDER DOCUMENTATION ---
HPI-Cardiac General - General Chief Complaint: Shortness of Breath Stated Complaint: SOB/DIZZINESS Time Seen by Provider: 09/07/18 08:01 Allergies/Adverse Reactions: Patient Allergies Allergy/AdvReac Type Severity Reaction Status Date / Time amoxicillin trihydrate * Allergy Unknown Unknown Verified 09/07/18 08:26 [From Augmentin] Antihistamines - Alkylamine Allergy Unknown Unknown Verified 09/07/18 08:26 Antihistamines - Ethanolamine Allergy Unknown Unknown Verified 09/07/18 08:26 cefadroxil [Cefadroxil] Allergy Unknown Unknown Verified 09/07/18 08:26 levofloxacin [From Levaquin] Allergy Unknown Unknown Verified 09/07/18 08:26 potassium clavulanate * Allergy Unknown Unknown Verified 09/07/18 08:26 [From Augmentin] codeine AdvReac Severe "makes him Verified 09/07/18 08:26 wild" gatifloxacin [From Tequin] AdvReac Severe weakness Verified 09/07/18 08:26 morphine AdvReac Severe palpatation Verified 09/07/18 08:26 s adhesive AdvReac Intermediate RASH Verified 09/07/18 08:26 Home Medications: Home Medication List Medication Instructions Recorded Confirmed Last Taken Type Magnesium Oxide [Mag-Ox] 400 mg PO DAILY #100 tablet 02/07/14 09/01/18 09/01/18 Rx Diltiazem [Cardizem] 120 mg PO DAILY 12/08/15 09/01/18 09/01/18 History Iron 65 mg PO DAILY 01/03/16 09/01/18 09/01/18 History Furosemide [Lasix] 40 mg PO BID tablet 11/18/17 09/01/18 09/01/18 Rx Ferrous Sulfate 325 mg PO DAILY tab 08/08/18 09/01/18 09/01/18 Rx Pantoprazole [Protonix] 40 mg PO DAILY@0700 tab 08/08/18 09/01/18 09/01/18 Rx Spironolactone [Aldactone] 25 mg PO BID tab 08/08/18 09/01/18 Unknown Rx ATORVAstatin [Lipitor] 40 mg PO HS tab 08/22/18 09/01/18 1 Day Ago Rx ~08/31/18 Carvedilol [Coreg] 3.125 mg PO BID tab 08/22/18 09/01/18 09/01/18 Rx Hydralazine [Apresoline] 10 mg PO TID tab 08/22/18 09/01/18 09/01/18 Rx Hydrocortisone 2.5% Lotion 1 ml TOP BID bottle 08/22/18 09/01/18 Unknown Rx Losartan [Cozaar] 100 mg PO DAILY tab 08/22/18 09/01/18 1 Day Ago Rx ~08/31/18 Warfarin Sodium 6 mg PO EVERY OTHER DAY 09/01/18 09/01/18 3 Days Ago History ~08/29/18 Warfarin [Coumadin] 5 mg PO EVERY OTHER DAY 09/01/18 09/01/18 1 Day Ago History ~08/31/18 Acetaminophen [Tylenol] 650 mg PO Q6H PRN PRN tab 09/03/18 Unknown Rx Potassium Chloride E.r. [Klor-Con] 20 meq PO BID tab 09/03/18 Unknown Rx - History of Present Illness-Cardiac Nature of Presenting Problem: 88 y/o WM c/o SOB and dizziness that is chronic but worsened this am. Pt was recently admitted for same complaint with Dr Byrd. Pt denies any CP today but states that whenever he gets up to do anything his heart just races. Location: reports: central Quality of Pain: reports: none Severity in ED: mild Onset/Duration: this morning Timing: still present Context/Activities at Onset: reports: light activity Modifying Factors: improves with: other (worse with activity) Palpitation Quality: irregular History of arrythmia: reports: A-Fib Recent use of:: reports: no stimulants Nitro Today/Relief: reports: no nitro taken today Aspirin Treatment Today: reports: no aspirin today Associated Symptoms: reports: shortness of breath Similar Symptoms Previously?: Yes Recently Seen Here or By Another Healthcare Provider: Yes Review of Systems - Adult - REVIEW OF SYSTEMS - ADULT Constitutional: reports: no symptoms reported, see HPI Eyes: reports: no symptoms reported, see HPI Ears, Nose, Mouth & Throat: reports: no symptoms reported, see HPI Cardiovascular: reports: see HPI, irregular heart rate, palpitations Respiratory: reports: see HPI, shortness of breath Gastrointestinal: reports: no symptoms reported, see HPI Genitourinary: reports: no symptoms reported, see HPI Musculoskeletal: reports: no symptoms reported, see HPI Integumentary: reports: no symptoms reported, see HPI Neurological: reports: no symptoms reported, see HPI Psychiatric: reports: no symptoms reported, see HPI Endocrine: reports: no symptoms reported, see HPI Hematologic/Lymphatic: reports: no symptoms reported, see HPI Allergic/Immunologic: reports: no symptoms reported, see HPI All Other Systems: Reviewed and Negative Past History - Adult - PAST MEDICAL HISTORY-ADULT Review of Records: reports: Nursing Assessment Review, Medications Reviewed, Social history reviewed & non-contributory. Major Childhood Illnesses: reports: denies history Cardiovascular: reports: A-Fib, CAD, HTN, hyperlipidemia Respiratory: reports: denies history Gastrointestinal: reports: denies history Obstetrical/Gynecological: reports: denies history Genitourinary: reports: denies history Musculoskeletal: reports: denies history Neurological: reports: CVA Endocrine/Immune: reports: denies history Other Conditions: reports: denies history - PRIOR SURGERIES/PROCEDURES Surgical/Procedure History: reports: CABG, cholecystectomy - IMMUNIZATION STATUS Childhood Immunizations: See Nurse Assessment Flu Vaccine: See Nurse Assessment - FAMILY HISTORY Family History: reviewed, not pertinent Physical Exam-General - PHYSICAL EXAM-ADULT Initial Vital Signs Reviewed: Yes - CONSTITUTIONAL General Appearance: appears well, alert, no apparent distress - EYES Eyes: PERRL/EOMI - HEAD, EARS, NOSE, MOUTH & THROAT HENMT: normocephalic/atraumatic, other (dry mucus membranes) - NECK Neck: non-tender, full range of motion, supple, normal inspection - RESPIRATORY Respiratory: chest non-tender, lungs clear, normal breath sounds, no pleuratic chest pain, no respiratory distress, no accessory muscle use - CARDIOVASCULAR Cardiovascular: normal peripheral pulses, no edema, no gallop, no JVD, no murmur , tachycardia, irregularly irregular - GASTROINTESTINAL (ABDOMEN) Abdominal Exam: normal bowel sounds, non tender, soft, no organomegaly, no pulsatile mass - LYMPHATIC Lymphatic: no adenopathy - MUSCULOSKELETAL Back Exam: normal inspection, no CVA tenderness, no vertebral tenderness Extremity: normal range of motion, non-tender, normal gait, normal inspection, no pedal edema, no calf tenderness, normal capillary refill - SKIN Integumentary: normal color, normal turgor - NEUROLOGIC Neurologic: 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 and former II-XII nml as tested, grossly normal, no motor/sensory deficits - PSYCHIATRIC Psych/Mental Status: normal mood/affect, normal thought content, normal thought process, oriented x 3 - HEART Score HEART Score: History: Slightly Suspicious HEART Score: ECG: Non-Specific Repolarization Disturbance/LBBB/PM HEART Score: Age: > or = 65 Years HEART Score: Risk Factors for Atherosclerotic Disease: > or = 3 Risk Factors or History of Atherosclerotic Disease HEART Score: Troponin: < or = Normal Limit Total HEART Score:: 5 Progress - PLAN OF CARE/RESULTS Progress/Plan/Lab Results: Vital Signs - 8 hr 09/07/18 08:00 Temperature 97.3 F L Pulse Rate 122 H Respiratory Rate 31 H Blood Pressure 98/72 O2 Sat by Pulse Oximetry 95 Laboratory Results - last 24 hr 09/07/18 09/07/18 09/07/18 08:17 08:18 08:18 WBC 5.35 RBC 4.27 L Hgb 13.1 L Hct 39.2 L MCV 91.8 MCH 30.7 MCHC 33.4 RDW Std Deviation 15.9 H Plt Count 130 MPV 11.5 H Immature Gran % (Auto) 0.0 Neut % (Auto) 82.2 H Lymph % (Auto) 4.9 L [place] % (Auto) 12.0 H Eos % (Auto) 0.7 Baso % (Auto) 0.2 Immature Gran # (Auto) 0.00 Neut # (Auto) 4.40 Lymph # (Auto) 0.26 L [place] # (Auto) 0.64 H Eos # (Auto) 0.04 Baso # (Auto) 0.01 PT INR PTT (Actin FS) Specimen Type ARTERIAL Sample Site R RADIAL pH 7.42 pCO2 32 L pO2 70 HCO3 22.6 Base Excess -2.8 Oxyhemoglobin 93.5 L ABG O2 Sat (Calculated) 17.1 ABG O2 Saturation 96.2 ABG Carboxyhemoglobin 1.90 ABG Methemoglobin 0.9 Sylvain Test YES A-a O2 Difference 40.0 Total Hemoglobin 13.0 Lactate 1.40 Blood Gas Modality ROOM AIR FiO2 % 21.0 Sodium 139 Potassium 5.3 H Chloride 102 Carbon Dioxide 20 L Anion Gap 17 BUN 52 H Creatinine 2.0 H Estimated GFR/1.73 m2 32 BUN/Creatinine Ratio 26 Glucose 127 H Calculated Osmolality 293 Calcium 9.7 Total Bilirubin 0.97 AST 19 ALT 14 Alkaline Phosphatase 97 Troponin T Tul-D-Njtrfmdrpor Pept Total Protein 6.6 Albumin 3.8 Globulin 2.8 Albumin/Globulin Ratio 1.4 09/07/18 09/07/18 09/07/18 08:18 08:18 08:18 WBC RBC Hgb Hct MCV MCH MCHC RDW Std Deviation Plt Count MPV Immature Gran % (Auto) Neut % (Auto) Lymph % (Auto) [place] % (Auto) Eos % (Auto) Baso % (Auto) Immature Gran # (Auto) Neut # (Auto) Lymph # (Auto) [place] # (Auto) Eos # (Auto) Baso # (Auto) PT 17.2 H INR 1.30 PTT (Actin FS) 32.4 Specimen Type Sample Site pH pCO2 pO2 HCO3 Base Excess Oxyhemoglobin ABG O2 Sat (Calculated) ABG O2 Saturation ABG Carboxyhemoglobin ABG Methemoglobin Sylvain Test A-a O2 Difference Total Hemoglobin Lactate Blood Gas Modality FiO2 % Sodium Potassium Chloride Carbon Dioxide Anion Gap BUN Creatinine Estimated GFR/1.73 m2 BUN/Creatinine Ratio Glucose Calculated Osmolality Calcium Total Bilirubin AST ALT Alkaline Phosphatase Troponin T 0.045 Znj-C-Gpyjixlazpb Pept 25686 H Total Protein Albumin Globulin Albumin/Globulin Ratio Orders Category Date Time Status Valdovinos Cath Insertion ORDERED Care 09/07/18 11:24 Active Nursing- Obtain EKG ONCE Care 09/07/18 08:02 Active cxr [CHEST-1 VIEW] [RAD] Stat Exams 09/07/18 08:03 Completed ABG [RESP] Routine Lab 09/07/18 08:17 Completed CBC WITH ELECTRONIC DIFF [HEME] Stat Lab 09/07/18 08:18 Completed COMPREHENSIVE METABOLIC PANEL [CHEM] Stat Lab 09/07/18 08:18 Completed PRO B-NATRIURETIC PEPTIDE Stat Lab 09/07/18 08:18 Completed PT [PROTIME WITH INR] [COAG] Stat Lab 09/07/18 08:18 Completed PTT [COAG] Stat Lab 09/07/18 08:18 Completed TROPONIN T Stat Lab 09/07/18 08:18 Completed URINALYSIS [URINALYSIS] Stat Lab 09/07/18 08:02 Uncollected Sodium Polystyrene [Kayexalate] Med 09/07/18 11:24 Discontinued 30 gm PO NOW ONE EKG [EKG] Stat Ther 09/07/18 08:02 Ordered Result Diagrams: 09/07/18 08:18 09/07/18 08:18 - EKG 1 Time of EKG reading by physician:: 08:06 EKG Read and Signed by:: Eldon Macario EKG Interpretation (*Must complete 3 of following elements*): Abnormal Rate: 130 Rhythm: irregular QRS: normal MN Interval: normal ST Wave: non-specific ST changes - CONSULTS/PCP/HOSPITALIST Notification #1 *Consult/PCP/Hospitalist*: Dr Yao Time Discussed: 11:26 Reason/Comments: call placed/ agreed to admit to Dr Byrd Consult Disposition: Admit Departure - Departure Date of Disposition Decision: 09/07/18 Time of Disposition Decision: 11:22 DIAGNOSIS: CHF (congestive heart failure), Bilateral pleural effusion, Hyperkalemia, Renal insufficiency, Atrial fibrillation Disposition: ADMITTED INPATIENT 09 Certified Medical Emergency: Emergent Condition: Fair Referrals and Follow-Ups: Troito Byrd MD [Primary Care Provider] - - Critical Care Note This patient required my direct & personal management of CC.: No Attestation - Physician/ JOSE Attestation Patient care was provided by Advanced Practice Provider:: No The physician spent face to face time with patient:: Yes Advanced Practice Provider documentation review:: Supervising physician onsite and consulted in the evaluation and care of this patient. The physician did have a face to face encounter with the patient.
[2018-09-07 08:27] LABS: ALLEN TEST YES; BE -2.8 mmoll (-3.0-3.0); BLOOD TYPE ARTERIAL; HCO3-(ACT) 22.6 mmoll (20.0-26.0); METHB 0.9 % (0.0-1.5); O2(CT) 17.1 mL/dL (15.0-23.0); O2HB 93.5 % (95.0-99.0); PCO2(98.6) 32 mmHg (35-45); PO2(98.6) 70 mmHg (60-100); SAMPLE BLOOD; SAO2 96.2 % (95.0-100.0); pH(98.6) 7.42 (7.35-7.45)
[2018-09-07 08:28] LABS: MODALITY ROOM AIR
--- NOTE | 2018-09-07 08:49 | Diag Imaging Result Doc PS360 ---
EXAM: CHEST-1 VIEW INDICATION: sob TECHNIQUE: 2 views COMPARISON: 09/01/2018 FINDINGS: There is a small left effusion and a small to moderate-sized right effusion. The effusion on the right is probably marginally larger than the previous study. The left effusion is stable. Adjacent atelectasis +/- infiltrate at the right lung base is unchanged. Mild interstitial edema and pulmonary venous congestion is approximately stable. Cardiac silhouette is stable. IMPRESSION: Slight increase in the right pleural effusion. Stable chest, otherwise. Electronically signed by Asa Schilling 09/07/2018 8:46 AM
[2018-09-07 09:13] LABS: BASO# 0.01 X1000 (0.0-0.2); BASO% 0.2 % (0.0-0.8); EOS# 0.04 X1000 (0.0-0.7); EOS% 0.7 % (0.0-10.0); HEMATOCRIT 39.2 % (42.0-52.0); HEMOGLOBIN 13.1 g/dL (14.0-18.0); LYMPH# 0.26 X1000 (1.2-3.4); LYMPH% 4.9 % (20.5-51.1); MCH 30.7 PG (27-31); MCHC 33.4 g/dL (33-37); MCV 91.8 FL (81-99); MONO# 0.64 X1000 (0.11-0.59); MPV 11.5 FL (7.4-10.4); NEUT% 82.2 % (42.2-75.2); PLT 130 X1000 (130-400); RBC 4.27 XMIL (4.7-6.1); RDW 15.9 % (11.5-14.5); WBC 5.35 X1000 (4.8-10.8)
[2018-09-07 09:19] LABS: INR 1.3; PROTIME 17.2 Seconds (11.0-16.0)
[2018-09-07 09:20] LABS: PTT 32.4 Seconds (22.3-41.8)
[2018-09-07 09:45] LABS: ALB/GLOB RATIO 1.4; ALBUMIN 3.8 g/dL (3.5-5.0); CALCIUM 9.7 mg/dL (8.8-10.2); POTASSIUM 5.3 mmol/L (3.5-5.1); TOTAL BILIRUBIN 0.97 mg/dL (0.20-1.00); TOTAL PROTEIN 6.6 g/dL (6.3-8.3)
--- NOTE | 2018-09-07 10:50 | ED EKG INTERP ---
This chart was entered by Benson Severino Scribe, acting as scribe for Eldon Macario MD. EKG Interpretation - EKG Time of EKG reading by physician:: 08:06 EKG Read and Signed by:: Eldon Macario EKG Interpretation (*Must complete 3 of following elements*): Abnormal Rate: 130 Rhythm: a-fib with RVR ST Wave: non-specific ST changes Attestation - Physician/ JOSE Attestation Patient care was provided by Advanced Practice Provider:: No The physician spent face to face time with patient:: Yes Advanced Practice Provider documentation review:: Supervising physician onsite and consulted in the evaluation and care of this patient. The physician did have a face to face encounter with the patient. This chart was documented by the indicated scribe, (Benson Severino Scribe) and accurately reflects the services I performed and decisions made by me, Eldon Johnson MD, as attested by the provider's signature.
[2018-09-07] MEDS ORDERED: KAYEXALATE PO ONE (11:24)
--- NOTE | 2018-09-07 13:31 | HISTORY AND PHYSICAL ---
CHIEF COMPLAINT: Shortness of breath. Heart racing. HISTORY OF PRESENT ILLNESS: The patient is an 88-year-old white male followed by Dr. Byrd who comes in with complaints of shortness of breath increasing over the past couple days and also some fast heart rate today particularly when he would get up to try to care for his . He had just returned home to help care for her in the past couple of days. He had been in the hospital about a week ago. MEDICATIONS: Prior to admission are taken off of his discharge medication list and show Tylenol p.r.n., Lipitor 40 mg p.o. at bedtime, Coreg 3.125 mg p.o. b.i.d., Cardizem 60 mg p.o. q.8 hours, ferrous sulfate 1 p.o. daily, Lasix 40 mg unknown frequency, hydralazine 10 mg t.i.d., hydrocortisone lotion 2.5%, losartan 50 mg p.o. daily, magnesium oxide 400 mg p.o. daily, Protonix 40 mg p.o. daily, KCl 20 mEq p.o. b.i.d., Aldactone 25 mg p.o. q.a.m., warfarin possibly 6 alternating with 5 every day. The Lasix may be 40 twice a day. ALLERGIES: To Amoxil and antihistamines, cefadroxil, Levaquin, Augmentin, codeine, Tequin, morphine and adhesives. PAST MEDICAL HISTORY: 1. Chronic atrial fibrillation on chronic anticoagulation. 2. Severe pulmonary hypertension. 3. Severe mitral regurgitation. 4. History of CVA. 5. Dementia. 6. Dyslipidemia. PAST SURGICAL HISTORY: 1. CABG. 2. Prostatectomy versus TURP. FAMILY HISTORY: Noncontributory. SOCIAL HISTORY: The patient has been in and out of the hospital especially over the past couple months. He lives with his who is in poor health. He is a nonsmoker. Does not drink. REVIEW OF SYSTEMS: Negative except as above. Unobtainable due to his current situation of shortness of breath. Patient denies chest pains. PHYSICAL EXAM: Pulse is running in the low 100s, was 130 to 122 on presentation, blood pressure is running low 98/72 on admission, O2 saturation on room air 94 to 95%. Weight 150 pounds. Elderly tall thin white male, chronically ill appearing. Mild increased work of breathing with use of accessory muscles to help with breathing. SKIN: Minor abrasions over the knee areas. No ominous lesions. PERRL. EOMI. Sclerae clear. OP no redness. Tongue in the midline. NECK: No LA, TMG, JVD or bruits. CV: Irregularly irregular tachycardia. LUNGS: Diminished breath sounds at the lower lung mcbride left possibly slightly greater than right. ABDOMEN: Soft. Active bowel sounds. May be some palpable stool diffusely across the abdomen. BACK: No point tenderness. GENITOURINARY/RECTAL: Deferred. EXTREMITIES: No calf tenderness, cords or edema. NEUROLOGIC: Cranial nerves are intact. He moves all extremities. No focal deficits identified. LABS: White count 5.3, hemoglobin 13.1, platelets 130,000, neutrophils 82%, lymphocytes 4.9, monocytes 12. INR 1.3. ABG on room air pH 7.42, pCO2 32, PO2 70, HC03 22.6, O2 saturation 96.2. Lactate 1.4. Sodium 139, potassium 5.3, chloride 102, CO2 20, BUN 52, creatinine 2.0, glucose 127, calcium 9.7, total bilirubin 0.97, AST 19, ALT 14, alkaline phosphatase 97, troponin 0.045. ProBNP up to 26,911, it was in the 3000s prior to discharge a week or 2 ago, total protein 6.6, albumin 3.8. Chest x-ray today shows slight increase in a chronic right pleural effusion and small left pleural effusion noted. The effusion on the right is small to moderate sized. Atelectasis or infiltrate in the right lung base unchanged. Pulmonary vascular congestion stable. ASSESSMENT: 1. Congestive heart failure. 2. Hyperkalemia mild. 3. Chronic atrial fibrillation with rapid ventricular response on anticoagulation of Coumadin with subtherapeutic levels. 4. Prerenal azotemia on top of chronic kidney disease. 5. History of prior stroke. 6. History of hypertension. 7. Dyslipidemia. 8. Coronary artery disease with history of coronary artery bypass graft remotely. PLAN: The patient has received Kayexalate per ER physician by his report to me. We will monitor his potassium. Leave him off potassium supplementation and off his Aldactone. We will follow his heart rate closely and adjust his Cardizem and Coreg as his blood pressure allows. We will follow in through the afternoon in the [facility] on telemetry and if his heart rate does not come down below 100 we will give him some digoxin. Valdovinos catheter has been placed. We will monitor his urine output. Difficult situation as he has some CHF with intravascular depletion. Likely resume his home medications once they are in the computer by the nursing staff. Again, will leave off diuretics at this point but will consider reinstitution of Lasix later on this evening if blood pressure allows. cc: Wily Yao MD
[2018-09-07 13:34] LABS: URINE SOURCE CATH
[2018-09-07 13:37] LABS: COLOR YELLOW
[2018-09-07 13:38] LABS: BILIRUBIN URINE NEGATIVE (NEGATIVE); BLOOD URINE NEGATIVE (NEGATIVE); GLUCOSE URINE NEGATIVE (NEGATIVE); KETONE URINE NEGATIVE (NEGATIVE); LEUKOCYTES URINE NEGATIVE (NEGATIVE); NITRITE URINE NEGATIVE (NEGATIVE); PROTEIN URINE TRACE mg/dL (NEGATIVE); SP GRAVITY URINE 1.011; TURBIDITY URINE HAZY (CLEAR); UR EPITHELIAL CELLS <10 /HPF (<10); URINE BACTERIA NEGATIVE /HPF; URINE RBC <10 /HPF (<10); URINE WBC <10 /HPF (<10); UROBILINOGEN URINE NORMAL (NORMAL)
[2018-09-07] MEDS ORDERED: TYLENOL PO PRN (16:18)
[2018-09-07] MEDS: CARDIZEM PO SCH ×2 (17:54→22:05)
[2018-09-07] MEDS: COREG PO SCH (20:32)
[2018-09-07] MEDS: COUMADIN PO SCH ×2 (20:32)
[2018-09-07] MEDS: LIPITOR PO SCH (20:32)
[2018-09-08 05:56] LABS: BASO# 0.01 X1000 (0.0-0.2); BASO% 0.1 % (0.0-0.8); EOS# 0.04 X1000 (0.0-0.7); EOS% 0.6 % (0.0-10.0); HEMATOCRIT 44.1 % (42.0-52.0); HEMOGLOBIN 14.8 g/dL (14.0-18.0); LYMPH# 0.28 X1000 (1.2-3.4); LYMPH% 4.1 % (20.5-51.1); MCH 30.9 PG (27-31); MCHC 33.6 g/dL (33-37); MCV 92.1 FL (81-99); MONO# 0.81 X1000 (0.11-0.59); MONO% 11.8 % (1.7-9.3); MPV 11.5 FL (7.4-10.4); NEUT# 5.72 X1000 (1.4-6.5); NEUT% 83.4 % (42.2-75.2); PLT 145 X1000 (130-400); RBC 4.79 XMIL (4.7-6.1); RDW 16.3 % (11.5-14.5); WBC 6.86 X1000 (4.8-10.8)
[2018-09-08 05:58] LABS: INR 1.24; PROTIME 16.6 Seconds (11.0-16.0)
[2018-09-08] MEDS: PROTONIX PO SCH (06:00)
[2018-09-08] MEDS: CARDIZEM PO SCH ×3 (06:00→21:12)
[2018-09-08 06:29] LABS: CALCIUM 10.2 mg/dL (8.8-10.2); POTASSIUM 5.1 mmol/L (3.5-5.1)
--- NOTE | 2018-09-08 08:28 | EKG Report ---
Test Performed on : 09/07/2018 08:06:40 AM Test Reason : sob Blood Pressure : / mmHG Vent. Rate : 130 BPM Atrial Rate : 079 BPM P-R Int : 000 ms QRS Dur : 094 ms QT Int : 312 ms P-R-T Axes : 000 067 147 degrees QTc Int : 459 ms Atrial fibrillation. with rapid ventricular response. Nonspecific ST and T wave abnormality Abnormal ECG When compared with ECG of 07-SEP-2018 08:05, (Unconfirmed) T wave inversion now evident in Lateral leads Unconfirmed Result
[2018-09-08] MEDS: COREG PO SCH ×2 (08:44→21:12)
[2018-09-08] MEDS: FERROUS SULFATE PO SCH (08:44)
[2018-09-08] MEDS: MAG-OX PO SCH (08:44)
[2018-09-08] MEDS ORDERED: IRON 65 MG PO SCH (09:00)
--- NOTE | 2018-09-08 10:04 | PROGRESS NOTE ---
DATE: 09/08/2018 Mr. Sarmiento was admitted with hyperkalemia. He is in congestive heart failure. I am going to repeat his lab work. The last potassium was 5.1 and he has prerenal azotemia, probably on account of Lasix therapy. We will continue with the current management on him at the present time. -1 cc: MD Wily Dunham MD
[2018-09-08] MEDS: COUMADIN PO SCH ×2 (21:12)
[2018-09-08] MEDS: LIPITOR PO SCH (21:12)
[2018-09-09] MEDS: PROTONIX PO SCH ×2 (05:42→06:09)
[2018-09-09] MEDS: CARDIZEM PO SCH ×3 (05:42→20:53)
[2018-09-09 05:52] LABS: INR 1.65; PROTIME 20.8 Seconds (11.0-16.0)
[2018-09-09 06:08] LABS: CALCIUM 9.8 mg/dL (8.8-10.2); CREATININE 2.1 mg/dL (0.7-1.2); POTASSIUM 5.9 mmol/L (3.5-5.1)
[2018-09-09] MEDS: COREG PO SCH ×2 (08:22→20:53)
[2018-09-09] MEDS: FERROUS SULFATE PO SCH (08:22)
[2018-09-09] MEDS: MAG-OX PO SCH (08:22)
[2018-09-09] MEDS ORDERED: KAYEXALATE PO ONE (08:34)
--- NOTE | 2018-09-09 13:07 | PROGRESS NOTE ---
DATE: 09/09/2018 Mr. Chacon is doing fairly well. He is in congestive heart failure, chronic atrial fibrillation. INR is still subtherapeutic. His potassium was 5.9. We will give him Kayexalate today, and we will start physical therapy. -5 cc: MD Wily Dunham MD
[2018-09-09] MEDS: COUMADIN PO SCH ×2 (20:53)
[2018-09-09] MEDS: LIPITOR PO SCH (20:53)
[2018-09-10] MEDS: CARDIZEM PO SCH ×3 (04:54→20:34)
[2018-09-10] MEDS: PROTONIX PO SCH ×2 (05:19→06:07)
[2018-09-10 06:18] LABS: CALCIUM 9.3 mg/dL (8.8-10.2)
[2018-09-10] MEDS: COREG PO SCH ×2 (08:30→20:34)
[2018-09-10] MEDS: FERROUS SULFATE PO SCH (08:30)
[2018-09-10] MEDS: MAG-OX PO SCH (08:30)
--- NOTE | 2018-09-10 09:08 | PROGRESS NOTE ---
DATE: 09/10/2018 SUBJECTIVE: Mr. Sarimento is still very weak and short of breath, but is breathing. His pulmonary congestion appears to be somewhat better. Potassium is down to 5.0 with the help of Kayexalate. I do not think he needs any Kayexalate at the present time. He is indicating the desire to go to rehab, as his is very sick at home and he needs some therapy. We will now try to get rehab at [facility]. -3 cc: MD Wily Dunham MD
[2018-09-10] MEDS: COUMADIN PO SCH ×2 (20:34)
[2018-09-10] MEDS: LIPITOR PO SCH (20:34)
[2018-09-11] MEDS: PROTONIX PO SCH ×2 (05:55→06:39)
[2018-09-11] MEDS: CARDIZEM PO SCH ×2 (05:55→12:09)
[2018-09-11] MEDS: MAG-OX PO SCH (08:23)
[2018-09-11] MEDS: FERROUS SULFATE PO SCH (08:23)
[2018-09-11] MEDS: COREG PO SCH (08:23)
--- NOTE | 2018-09-11 09:18 | PROGRESS NOTE ---
DATE: 09/11/2018 SUBJECTIVE: Mr. Sarmiento has bilateral perfusion, hyperkalemia, CHF. He is stable. Potassium is normal. Will discharge him today to rehab. -9 cc: MD Wily Dunham MD
--- NOTE | 2018-09-11 11:41 | DISCHARGE SUMMARY ---
ADMISSION DATE: 09/07/2018 DISCHARGE DATE: 09/11/2018 HOSPITAL COURSE: Mr. Sarmiento is an 88-year-old white gentleman was admitted on 09/07/2018 for hyperkalemia, congestive heart failure, and potassium was 5.9. He has bilateral pleural effusions. LABORATORY/X-RAY: Initial chest x-ray had revealed pleural effusions bilaterally, more on the right side. His EKG showed atrial fibrillation. His CBC was unremarkable. INR was 1.65. Blood gases revealed pH 7.42, pCO2 32, PO2 of 70. Initial potassium had gone to 5.9; it is down to 5.0. Urinalysis is negative. COURSE IN THE HOSPITAL: Mr. Sarmiento was given IV Lasix, Kayexalate was given. He has had carotid flow studies in the past admission, which we will check on to that. He is feeling better. He will be discharged to rehab either at [facility] or [facility] today. FINAL DIAGNOSES: 1. Congestive heart failure. 2. Chronic atrial fibrillation. 3. Severe dizziness. 4. Prerenal azotemia. 5. Bilateral pleural effusions. cc: MD Wily Dunham MD
[2018-09-11 12:14] VITALS: BP 107/74
--- NOTE | 2018-09-16 14:06 | DISCHARGE SUMMARY ---
ADMISSION DATE: 09/07/2018 DISCHARGE DATE: 09/11/2018 DISCHARGE SUMMARY ADDENDUM: Mr. Sarmiento is a 88 year old white male admitted with congestive heart failure. He has both systolic and diastolic congestive heart failure acute on chronic. cc: MD Wily Dunham MD
== END 2018-09-11 13:40 | DRG 291 ==
LOC: SUPCPDRO → ED 08:00 → EDIPHOLD 12:00 → 3S 17:46
PROVIDERS: ADMIT Family Medicine; ATTEND Internal Medicine
CPT/HCPCS: 51702; 71010; 71045; 80048; 80053; 81001; 82805; 83880; 84484; 85025; 85610; 85730; 93005; 94761; 97116; 97162; 97530; 99285; A9270

== ENCOUNTER 2018-09-30 00:38 | Inpatient (IN) ==
[2018-09-30 01:46] LABS: BASO# 0.01 X1000 (0.0-0.2); BASO% 0.2 % (0.0-0.8); HEMATOCRIT 39.2 % (42.0-52.0); LYMPH# 0.16 X1000 (1.2-3.4); LYMPH% 2.8 % (20.5-51.1); MCH 30.3 PG (27-31); MCHC 33.2 g/dL (33-37); MCV 91.4 FL (81-99); MONO# 0.51 X1000 (0.11-0.59); NEUT# 4.96 X1000 (1.4-6.5); PLT 151 X1000 (130-400); RBC 4.29 XMIL (4.7-6.1); RDW 15.5 % (11.5-14.5); WBC 5.64 X1000 (4.8-10.8)
[2018-09-30 01:52] LABS: INR 1.29; PROTIME 17.1 Seconds (11.0-16.0)
[2018-09-30 01:59] LABS: ALB/GLOB RATIO 1.3; ALBUMIN 3.4 g/dL (3.5-5.0); CALCIUM 9.5 mg/dL (8.8-10.2); CREATININE 1.7 mg/dL (0.7-1.2); TOTAL BILIRUBIN 0.63 mg/dL (0.20-1.00); TOTAL PROTEIN 6.1 g/dL (6.3-8.3)
[2018-09-30] MEDS: LASIX IV ONE ×2 (02:20→02:42)
[2018-09-30] MEDS ORDERED: LOPRESSOR PO ONE ×2 (02:20→02:31)
[2018-09-30] MEDS ORDERED: LASIX IV ONE (02:31)
[2018-09-30 02:52] LABS: URINE SOURCE CLEAN CATCH
--- NOTE | 2018-09-30 03:01 | PROVIDER DOCUMENTATION ---
This chart was entered by Willa Cerrato Scribe, acting as scribe for Nenita Salazar MD. HPI-General Adult - General Chief Complaint: Shortness of Breath Stated Complaint: LOW OXYGEN, AMS Time Seen by Provider: 09/30/18 00:43 Source: patient Allergies/Adverse Reactions: Patient Allergies Allergy/AdvReac Type Severity Reaction Status Date / Time amoxicillin trihydrate * Allergy Unknown Unknown Verified 09/30/18 01:34 [From Augmentin] Antihistamines - Alkylamine Allergy Unknown Unknown Verified 09/30/18 01:34 Antihistamines - Ethanolamine Allergy Unknown Unknown Verified 09/30/18 01:34 cefadroxil [Cefadroxil] Allergy Unknown Unknown Verified 09/30/18 01:34 levofloxacin [From Levaquin] Allergy Unknown Unknown Verified 09/30/18 01:34 potassium clavulanate * Allergy Unknown Unknown Verified 09/30/18 01:34 [From Augmentin] codeine AdvReac Severe "makes him Verified 09/30/18 01:34 wild" gatifloxacin [From Tequin] AdvReac Severe weakness Verified 09/30/18 01:34 morphine AdvReac Severe palpatation Verified 09/30/18 01:34 s adhesive AdvReac Intermediate RASH Verified 09/30/18 01:34 Home Medications: Home Medication List Medication Instructions Recorded Confirmed Last Taken Type Furosemide [Lasix] 40 mg PO BID tablet 11/18/17 09/30/18 09/01/18 Rx Ferrous Sulfate 325 mg PO DAILY tab 08/08/18 09/30/18 09/01/18 Rx Pantoprazole [Protonix] 40 mg PO DAILY@0700 tab 08/08/18 09/30/18 09/01/18 Rx Spironolactone [Aldactone] 25 mg PO BID tab 08/08/18 09/30/18 Unknown Rx Carvedilol [Coreg] 3.125 mg PO BID tab 08/22/18 09/30/18 09/01/18 Rx Hydralazine [Apresoline] 10 mg PO TID tab 08/22/18 09/30/18 09/01/18 Rx Hydrocortisone 2.5% Lotion 1 ml TOP BID bottle 08/22/18 09/30/18 Unknown Rx Losartan [Cozaar] 100 mg PO DAILY tab 08/22/18 09/30/18 1 Day Ago Rx ~08/31/18 Warfarin Sodium 3 mg PO EVERY OTHER DAY 09/01/18 09/30/18 3 Days Ago History ~08/29/18 ATORVAstatin [Lipitor] 40 mg PO HS tab 09/11/18 09/30/18 Unknown Rx Acetaminophen [Tylenol] 650 mg PO Q6H PRN PRN tab 09/11/18 09/30/18 Unknown Rx Diltiazem [Cardizem] 60 mg PO Q8HR tab 09/11/18 09/30/18 Unknown Rx Magnesium Oxide [Mag-Ox] 400 mg PO DAILY tab 09/11/18 09/30/18 Unknown Rx - History of Present Illness -Gen Adult Nature of Presenting Problems: PT IS A 88 YR OLD MALE PRESENTING VIA EMS FROM [facility], PER SKILLED NURSING PT WAS MORE SHORT OF BREATH AND O2 SAT WAS DROPPING INTO THE 80'S DESPITE BEING ON CONTINUOUS 2LPM O2. PT REPORTS HE HAS HAD SHORTNESS OF BREATH X 3 WEEKS, TONIGHT IS NO WORSE THAN IT HAS BEEN, PT DENIES ANY OTHER COMPLAINTS, DOES REPORT HX OF HAVING BLOOD DRAINED FROM LUNGS BUT UNSURE WHEN OR WHY IT WAS DONE. Location of Pain/Injury: reports: none Pain Radiation: reports: no radiation Quality of Pain: reports: none Onset/Duration: reports: other (HX OF SAME X 3 WEEKS) Timing: reports: still present Context/Activities at Onset: reports: rest Modifying Factors: improves with: other (NO CHANGE WITH O2) Associated Symptoms: reports: shortness of breath. denies: chest pain, diaphoresis, EENT symptoms, fever/chills Similar Symptoms Previously?: Yes Recently seen or treated by another doctor?: Yes Review of Systems - Adult - REVIEW OF SYSTEMS - ADULT Constitutional: denies: fever Eyes: reports: no symptoms reported Ears, Nose, Mouth & Throat: reports: no symptoms reported Cardiovascular: denies: chest pain, palpitations, syncope Respiratory: reports: shortness of breath (X 3 WEEKS) Gastrointestinal: reports: no symptoms reported Genitourinary: reports: no symptoms reported Musculoskeletal: reports: no symptoms reported Integumentary: reports: no symptoms reported Neurological: reports: no symptoms reported Psychiatric: reports: no symptoms reported Endocrine: reports: no symptoms reported Hematologic/Lymphatic: reports: no symptoms reported Allergic/Immunologic: reports: no symptoms reported All Other Systems: Reviewed and Negative Past History - Adult - PAST MEDICAL HISTORY-ADULT Review of Records: reports: Old Records Reviewed, Nursing Assessment Review, Medications Reviewed, Social history reviewed & non-contributory. Major Childhood Illnesses: reports: denies history Cardiovascular: reports: A-Fib, CAD, HTN, hyperlipidemia Respiratory: reports: denies history Gastrointestinal: reports: denies history Obstetrical/Gynecological: reports: denies history Genitourinary: reports: denies history Musculoskeletal: reports: denies history Neurological: reports: CVA Endocrine/Immune: reports: denies history Other Conditions: reports: denies history - PRIOR SURGERIES/PROCEDURES Surgical/Procedure History: reports: CABG, cholecystectomy - IMMUNIZATION STATUS Childhood Immunizations: See Nurse Assessment Flu Vaccine: See Nurse Assessment - FAMILY HISTORY Family History: reviewed, not pertinent - SOCIAL HISTORY Smoking: denies Substance Use: denies Living Situation: care facility ([facility]) Physical Exam-General - PHYSICAL EXAM-ADULT Initial Vital Signs Reviewed: Yes - CONSTITUTIONAL General Appearance: alert, no apparent distress - EYES Eyes: PERRL/EOMI - HEAD, EARS, NOSE, MOUTH & THROAT HENMT: normocephalic/atraumatic, moist mucous membranes, normal ENT inspection - NECK Neck: full range of motion, supple, normal inspection - RESPIRATORY Respiratory: chest non-tender, no respiratory distress, no accessory muscle use, decreased breath sounds (RIGHT), crackles (BILATERAL BASES) - CARDIOVASCULAR Cardiovascular: normal peripheral pulses, tachycardia, irregularly irregular - GASTROINTESTINAL (ABDOMEN) Abdominal Exam: non tender, soft - LYMPHATIC Lymphatic: no adenopathy - MUSCULOSKELETAL Back Exam: normal inspection Extremity: no pedal edema, no calf tenderness, normal capillary refill - SKIN Integumentary: normal color, normal turgor, warm/dry - PSYCHIATRIC Psych/Mental Status: normal mood/affect, oriented x 3 Progress - PLAN OF CARE/RESULTS Progress/Plan/Lab Results: Vital Signs - 8 hr 09/30/18 00:51 Temperature 97.5 F L Pulse Rate 109 H Respiratory Rate 24 Blood Pressure 104/82 O2 Sat by Pulse Oximetry 95 Orders Category Date Time Status Nursing- Obtain EKG ONCE Care 09/30/18 01:03 Active CHEST-1 VIEW [RAD] Stat Exams 09/30/18 01:03 Ordered CBC WITH ELECTRONIC DIFF [HEME] Stat Lab 09/30/18 01:03 Uncollected COMPREHENSIVE METABOLIC PANEL [CHEM] Stat Lab 09/30/18 01:03 Uncollected PRO B-NATRIURETIC PEPTIDE Stat Lab 09/30/18 01:03 Uncollected PROTIME WITH INR [COAG] Stat Lab 09/30/18 01:03 Uncollected TROPONIN T Stat Lab 09/30/18 01:03 Uncollected URINALYSIS W/POSS RFLX CULT [URINALYSIS] Stat Lab 09/30/18 01:03 Uncollected EKG [EKG] Stat Ther 09/30/18 01:03 Ordered Result Diagrams: 09/30/18 01:13 09/30/18 01:13 - EKG 2 Time of EKG reading by physician:: 01:31 EKG Read and Signed by:: Nenita Salazar EKG Interpretation (*Must complete 3 of following elements*): Abnormal Rate: 109 Rhythm: Afib with RVR ST Wave: non-specific ST changes Prior EKG Comparison: unchanged from prior - XRAY 1 XRAY Study: Chest Impression: Abnormal (interstitial pulmonary edema) Comparison with other Films: changes noted (worse than prior) - CONSULTS/PCP/HOSPITALIST Notification #1 *Consult/PCP/Hospitalist*: Dr Callejas Time Discussed: 03:01 Consult Disposition: Admit Departure - Departure Date of Disposition Decision: 09/30/18 Time of Disposition Decision: 03:00 DIAGNOSIS: Chronic atrial fibrillation with RVR Acute exacerbation of CHF (congestive heart failure) Qualifiers: Heart failure type: unspecified Qualified Code(s): I50.9 - Heart failure, unspecified Disposition: ADMITTED INPATIENT 09 Certified Medical Emergency: Emergent Condition: Stable Referrals and Follow-Ups: Torito Byrd MD [Primary Care Provider] - - Critical Care Note This patient required my direct & personal management of CC.: Yes Total Time (mins): 75 Critical Care Statement: This patient required my direct personal management to treat or rule out processes, the absence of which, could potentiallly result in sudden, clinically significant life or limb threatening deterioration. Attestation - Physician/ JOSE Attestation Patient care was provided by Advanced Practice Provider:: No The physician spent face to face time with patient:: Yes Advanced Practice Provider documentation review:: Supervising physician onsite and consulted in the evaluation and care of this patient. The physician did have a face to face encounter with the patient. This chart was documented by the indicated scribe, (Willa Cerrato, Aisha) and accurately reflects the services I performed and decisions made by me, Nenita Salazar MD, as attested by the provider's signature.
[2018-09-30 03:21] LABS: BILIRUBIN URINE NEGATIVE (NEGATIVE); BLOOD URINE NEGATIVE (NEGATIVE); COLOR YELLOW; GLUCOSE URINE NEGATIVE (NEGATIVE); KETONE URINE NEGATIVE (NEGATIVE); LEUKOCYTES URINE NEGATIVE (NEGATIVE); NITRITE URINE NEGATIVE (NEGATIVE); PROTEIN URINE TRACE mg/dL (NEGATIVE); SP GRAVITY URINE 1.013; TURBIDITY URINE CLEAR (CLEAR); UROBILINOGEN URINE NORMAL (NORMAL)
[2018-09-30 03:23] LABS: UR EPITHELIAL CELLS <10 /HPF (<10); URINE BACTERIA NEGATIVE /HPF; URINE RBC <10 /HPF (<10); URINE WBC <10 /HPF (<10)
[2018-09-30] MEDS ORDERED: LANOXIN IV ONE (03:36)
[2018-09-30] MEDS ORDERED: TYLENOL PO PRN ×2 (05:34)
[2018-09-30] MEDS ORDERED: ZOFRAN IV PRN (05:34)
[2018-09-30] MEDS: PROTONIX PO SCH (06:06)
[2018-09-30] MEDS: LASIX 100 MG in NS 90 ML IV SCH (06:06)
[2018-09-30] MEDS: HEPARIN SUBQ SCH ×2 (06:06→17:08)
[2018-09-30] MEDS: CARDIZEM PO SCH ×3 (06:06→17:08)
--- NOTE | 2018-09-30 07:10 | Diag Imaging Result Doc PS360 ---
EXAM: CHEST-1 VIEW 09/30/2018 HISTORY: SOB TECHNIQUE: AP portable at 0119 COMMENT: There are large bilateral pleural effusions. There is pulmonary edema particularly in the lung bases. Both of these findings are worse than on 09/07/2018. IMPRESSION: Worsened pulmonary edema and pleural effusions. Electronically signed by John Leon 09/30/2018 7:07 AM
[2018-09-30] MEDS: ALDACTONE PO SCH ×2 (07:58→08:52)
[2018-09-30] MEDS: LANOXIN PO SCH (07:59)
[2018-09-30] MEDS: MAG-OX PO SCH (07:59)
[2018-09-30] MEDS: COREG PO SCH ×2 (07:59→21:11)
--- NOTE | 2018-09-30 08:15 | HISTORY AND PHYSICAL ---
REASON FOR ADMISSION: Shortness of breath for the last 2 days. HISTORY OF PRESENT ILLNESS: Mr. Juan Sarmiento is an 88-year-old man with past medical history of chronic diastolic heart failure, atrial fibrillation, and severe mitral regurgitation complicated with severe pulmonary hypertension, mild vascular dementia, prior CVA, hyperlipidemia, hypertension, and coronary artery disease, and BPH. He comes in today from the [facility] with acute onset dyspnea. He has chronic home O2 2 L, but has not had to require more than needed but he was breathing at 28 to 30 times a minute. On arrival to the ER, he was still maintained on his 02 L at this time on 3 L, but was having a hard time maintaining sentences and was tachypneic. The patient gives a history of increasing PND over the last 1 week and orthopnea. He says for the last 4 months his endurance has been diminishing and getting weaker and weaker. He denies any leg swelling, but says his abdomen is slightly more distended than usual. No chest pain. No cough, no fever, no palpitations but does have occasional lightheadedness. No other cardiorespiratory complaints. He states that he does have fecal urinary incontinence. He attributes this to prior surgery for his prostate as the cause. No focal neurological complaints. The patient is a poor historian. REVIEW OF SYSTEMS: Twelve system review was done albeit limited. No arthralgias or rash. He complains of distal lower extremity pruritus. ALLERGIES: Penicillin, antihistamines, cephalosporins, Levaquin, and morphine as needed. PAST MEDICAL HISTORY: History includes CKD. PAST SURGICAL HISTORY: He has had prostatectomy and CABG. FAMILY HISTORY: Notable for prostate cancer and heart disease in first-degree relatives. SOCIAL HISTORY: The patient is a resident of [facility]. Does not smoke or drink, or use any illicit use drugs. HOME MEDICATION LIST: 1. Cardizem 60 mg q.8. 2. Coumadin 3 mg every day. 3. Spironolactone 25 mg b.i.d. 4. Hydralazine 10 mg t.i.d. 5. Coreg 3.125 mg b.i.d. 6. Cozaar 100 mg daily. 7. Ferrous Sulfate 225 mg a day. 8. Hydrocortisone lotion b.i.d. 9. Lasix 40 mg daily. 10. Lipitor 40 mg at bedtime. 11. Magnesium oxide 40 mg daily. 12. Protonix 40 mg daily q.6 p.r.n. LABORATORY WORK: White count 5000, hemoglobin and hematocrit 13 and 39, platelets 161,000 and 88% neutrophils. BUN 16, creatinine 1.7, and glucose 152. ProBNP 35,000. Troponin 0.039. INR is 1.3. PT 17. Urinalysis with trace protein. Chest film reviewed by me shows what appears to be increased vascular marking rotated film possible right outer lobe infiltrate with effusion. PHYSICAL EXAMINATION: VITAL SIGNS: Blood pressure 98/75, heart rate 107, respiratory rate 28, 96% on 3 L. Afebrile. GENERAL: Chronically ill elderly man who is in mild respiratory distress being that he can complete his sentences. He is alert and oriented to person, place and time. Slightly anxious. HEENT: Head is normocephalic, atraumatic. Eyes: PERRLA, EOMI. Tympanic membranes are mildly pale. NECK: Supple with notable JVD. No bruit. No thyromegaly. CHEST: Exam surprisingly decreased entry in the bases with no crepitations. CARDIOVASCULAR: 1st and 2nd heart sounds heard. There is a loud 3 to 4/6 angulo systolic murmur heard in the apex. Rhythm is irregular. ABDOMEN: Protuberant and full and soft. Nontender. No mass or megaly. Bowel sounds normal. RECTAL: Exam is deferred. EXTREMITIES: The patient has decreased distal pulses which are irregular and symmetrical. His feet are notably cool to touch. There is trace edema in the lower extremities. No clubbing or cyanosis. NEUROLOGICAL: No gross focal deficits. SKIN: Intact with no breakdown. MUSCULOSKELETAL: Exam is grossly intact. ASSESSMENT: 1. Acute diastolic heart failure. 2. Acute on chronic respiratory failure secondary to #1. 3. Pulmonary hypertension. 4. CKD stage 3. 5. Hypertensive heart disease. 6. Hyperlipidemia. 7. Coronary artery disease. 8. Atrial fibrillation with rapid ventricular rate. 9. Mild vascular dementia. 10. Severe mitral regurgitation. PLAN: We will initiate aggressive diuresis in this patient. Monitor BMP closely. There was actually no role for Aldactone and Cozaar in this patient who has . preserved ejection. He had a reduced ejection fraction and the Entresto has been ideal, but this is not the case. Goal here will be to control rate, control blood pressure, and aggressively diurese patient. This patient is very likely to have frequent recurrent admissions. In light of his age, will be beneficial if he can be counseled to undergo the care of hospice or palliative care to avoid unnecessary admissions since his problems cannot be fixed especially with mitral regurgitation. It is very likely that he will need to be diuresed to the point that he may compromise his renal function so he can be better. For further rate control, consider either amiodarone or dig. Also, the patient's Coumadin will need to be adjusted. We will try an alternative anticoagulant. We will defer to Dr. Byrd regarding this. cc: MD Torito Mota MD
--- NOTE | 2018-09-30 08:51 | PROGRESS NOTE ---
DATE: 09/30/2018 SUBJECTIVE: Mr. Sarmiento who is a resident of [facility] came with severe shortness of breath. He has bilateral large effusions. PLAN: We will get a Pulmonary consult with Dr. Foster, who did pleural tapping on the right side. I feel like he will benefit from thoracentesis again this time. We will also get Cardiology consult because of congestive heart failure. -7 cc: Torito Byrd MD
[2018-09-30] MEDS ORDERED: LANOXIN PO SCH (09:00)
[2018-09-30] MEDS: DUONEB (A & A) INH SCH ×3 (09:25→21:45)
[2018-09-30] MEDS: HYDROCORTISONE 2.5% LOTION TOP SCH ×2 (10:25→21:12)
--- NOTE | 2018-09-30 15:06 | CARDIOLOGY CONSULTATION ---
DATE: 09/30/2018 CHIEF COMPLAINT: Shortness of breath, hypoxemia, weakness. HISTORY: Mr. Sarmiento is an 88-year-old male who is well known to us. He has been admitted to the hospital several times since his last hospital admission on 08/04/2018. The patient, at this time, was at a jail, [facility], and he was found to be dyspneic and his oxygen saturation had dropped significantly. They brought him to the ER. They did a chest x-ray that shows worsening pulmonary edema and pleural effusions. ProBNP level greater than 35,000. His BUN and creatinine were 62 and 1.7. The patient was given Lasix, and he has been diuresing since last night. The patient denies having any pain. He is just very weak, not much appetite. This admission is really no different than prior one about a month ago, with just about the same presentation. PAST MEDICAL HISTORY: Positive for congestive heart failure, which is due to valvular heart disease and atrial fibrillation. He has severe mitral regurgitation. The patient is very limited to perform any kind of physical activity. He is almost wheelchair bound or bedbound. He has had permanent atrial fibrillation, pulmonary hypertension. He has had kidney stones in the past. He had coronary heart disease. PAST SURGICAL HISTORY: Previous bypass x1 to the right coronary artery. He has had cholecystectomy and cataract extraction. SOCIAL HISTORY: He is currently staying at a jail. He has been for many years. He is not a smoker. He has no children. REVIEW OF SYSTEMS: The patient has been recently admitted to the hospital twice from 09/01/2018 through 09/03/2018 for syncope, and from 09/07/2018 through 09/11/2018 for hyperkalemia and CHF. HOME MEDICATIONS: At this time included atorvastatin 40 at bedtime, carvedilol 3.125 twice a day, diltiazem 60 every 8 hours, ferrous sulfate 325 daily, furosemide 40 twice a day, hydralazine 10 three times a day, losartan 100 daily, magnesium oxide 400 daily, Protonix 40 mg daily, spironolactone 25 twice a day, warfarin per schedule 3 mg every other day. Acetaminophen as needed. ALLERGIES: He is allergic to Levaquin, amoxicillin, antihistamines, morphine, and adhesive tape. REVIEW OF SYSTEMS: Very poor functional capacity. Tremendous limitation to perform physical activity. PHYSICAL EXAMINATION: Vital signs: Blood pressure is 106/67, temperature 97.5 degrees, pulse 99, respirations 16. General: He is awake, alert, no distress. HEENT: Unremarkable. Chest: Diminished breath sounds, especially in both bases, with dullness to percussion. Heart: Heart sounds are irregularly irregular with a loud systolic murmur over the mitral area. Abdomen: Soft, scaphoid. Extremities: No obvious edema. Decreased pulses. Neurological: Sluggish. Moves 4 extremities. Follows commands. Hard of hearing. He appears to be really chronically ill, and appears to be more deteriorated than on previous admissions. LABORATORY WORK: Sodium 139, potassium 4.0, BUN 62, creatinine 1.7. Albumin level is 3.4. Hemoglobin 13 grams, hematocrits 39.2%. IMPRESSION: Patient with: 1. Chronic congestive heart failure, valvular/diastolic. 2. Severe mitral regurgitation. 3. Pleural effusions secondary to heart failure. 4. Permanent atrial fibrillation. 5. Coronary heart disease with previous bypass. 6. Markedly impaired functional status. RECOMMENDATION: At this time, I would suggest a very conservative approach. I think it is more than reasonable to offer a DO NOT RESUSCITATE level 1 status to this patient, and also strong consideration should be given at making him a hospice candidate since it is obvious that his general condition has deteriorated rapidly. He is not a candidate for any heroic cardiac procedure or intervention at this time. I agree with consultation with Pulmonary for additional opinion. cc: MD Torito Zamarripa MD
--- NOTE | 2018-09-30 20:30 | PULMONOLOGY CONSULTATION ---
DATE: 09/30/2018 REQUESTING PHYSICIAN: Dr. Byrd. REASON FOR CONSULTATION: Right pleural effusion with congestive heart failure. HISTORY OF PRESENT ILLNESS: Mr. Sarmiento is an 88-year-old, white male, never smoker, with severe mitral regurgitation, pulmonary hypertension, recurrent pleural effusions, with atrial fibrillation and recurrent admissions to the hospital with heart failure. The patient has undergone thoracentesis in the past. He has been evaluated by Dr. Sanchez and hospice has been recommended. The patient does recall prior thoracentesis. He does report that he did have some decrease in dyspnea following the thoracentesis. We discussed the risk of possible thoracentesis and he would like to at least try 1 more during this hospitalization. PAST MEDICAL HISTORY: 1. Chronic atrial fibrillation. 2. Severe pulmonary hypertension. 3. Severe mitral regurgitation. 4. History of stroke. 5. Dyslipidemia. 6. Dementia. SOCIAL HISTORY: No tobacco or alcohol use. FAMILY HISTORY: Positive for heart disease and prostate cancer. REVIEW OF SYSTEMS: Notable for shortness of breath with any exertion. PHYSICAL EXAMINATION: General: Reveals a chronically ill-appearing male who is not short of breath while lying in the bed. Vital signs: Blood pressure 106/67, heart rate 90, respiratory rate 16, oxygen saturation 99% on 3 L per nasal cannula. HEENT: Pupils are equal and reactive. Oropharynx appears clear. Neck: Supple. Chest: Reveals diminished breath sounds, right greater than left base. Cardiac Exam: S1-S2 with 3/6 systolic murmur to the lower left sternal border. Abdomen: Soft. Extremities: Reveal trace to 1+ peripheral edema. LABORATORIES: Chest x-ray reveals bilateral effusions. Sodium 139, potassium 5.0, chloride 99, bicarbonate 23, BUN 62, creatinine 1.7. INR is 1.29. IMPRESSION: 1. An 88-year-old with severe heart failure due to severe mitral regurgitation. 2. Bilateral pleural effusions. 3. Chronic atrial fibrillation. 4. Coronary artery disease. 5. Hypoxemic respiratory failure. PLAN: 1. We will ask Radiology to perform thoracentesis on the right hemithorax. 2. Agree with Dr. Sanchez, the patient's prognosis is extremely poor. Would recommend hospice evaluation given his recurrent admissions to the hospital and poor prognosis. cc: MD Torito Judd MD
[2018-09-30] MEDS: LIPITOR PO SCH (21:11)
[2018-10-01] MEDS: CARDIZEM PO SCH ×4 (00:27→21:49)
[2018-10-01] MEDS: DUONEB (A & A) INH SCH ×4 (03:36→22:10)
[2018-10-01] MEDS: LASIX 100 MG in NS 90 ML IV SCH (05:44)
[2018-10-01] MEDS: PROTONIX PO SCH ×2 (05:44→06:10)
[2018-10-01 05:52] LABS: BASO# 0.01 X1000 (0.0-0.2); BASO% 0.2 % (0.0-0.8); EOS# 0.19 X1000 (0.0-0.7); EOS% 4.4 % (0.0-10.0); HEMOGLOBIN 12.8 g/dL (14.0-18.0); LYMPH# 0.22 X1000 (1.2-3.4); MCH 30.6 PG (27-31); MCHC 32.8 g/dL (33-37); MCV 93.3 FL (81-99); MONO# 0.57 X1000 (0.11-0.59); MONO% 13.1 % (1.7-9.3); MPV 11.4 FL (7.4-10.4); NEUT# 3.37 X1000 (1.4-6.5); NEUT% 77.3 % (42.2-75.2); PLT 160 X1000 (130-400); RBC 4.18 XMIL (4.7-6.1); RDW 15.5 % (11.5-14.5); WBC 4.36 X1000 (4.8-10.8)
[2018-10-01 06:18] LABS: POTASSIUM 4.5 mmol/L (3.5-5.1)
[2018-10-01 06:19] LABS: CALCIUM 9.5 mg/dL (8.8-10.2); CREATININE 1.9 mg/dL (0.7-1.2)
--- NOTE | 2018-10-01 08:33 | Diag Imaging Result Doc PS360 ---
EXAM: US THORACENTESIS W/IMAGE GUIDE INDICATION: Pleural effusions TECHNIQUE: COMPARISON: 08/20/2018 FINDINGS: Risks, benefits, and alternatives were discussed with the patient and informed consent was obtained. The patient was prepped and draped in sterile fashion and local anesthesia was achieved with 1% lidocaine solution. Using ultrasound guidance, a large bore catheter was inserted into the right pleural space and 1500 mL of tracey serous fluid was aspirated. There were no known complications. A chest radiograph is to follow. IMPRESSION: Technically successful ultrasound-guided right thoracentesis. Electronically signed by Asa Schilling 10/01/2018 8:31 AM
--- NOTE | 2018-10-01 08:42 | Diag Imaging Result Doc PS360 ---
EXAM: CHEST-2 VIEWS INDICATION: CHF TECHNIQUE: 2 views COMPARISON: 09/30/2018 FINDINGS: There has been interval significant improvement of the right pleural effusion status post right thoracentesis. A small right pleural effusion remains. There is no evidence of pneumothorax status post right thoracentesis. There is a small to moderate-sized left pleural effusion that is probably slightly larger than yesterday's study. There is improved atelectasis at the right lung base status post thoracentesis. No new consolidation is identified. Cardiac silhouette is essentially stable. IMPRESSION: 1.No evidence of pneumothorax status post right thoracentesis. 2.Slight increase in the smaller left pleural effusion. Electronically signed by Asa Schilling 10/01/2018 8:40 AM
[2018-10-01] MEDS: HYDROCORTISONE 2.5% LOTION TOP SCH ×2 (09:12→21:50)
--- NOTE | 2018-10-01 09:23 | PROGRESS NOTE ---
DATE: 10/01/2018 LOCATION: [address] SUBJECTIVE: Mr. Sarmiento is doing better. He is breathing better. We had about 1500 mL of fluid drained this a.m. by Dr. Schilling. His lungs still sound congested. He is being seen by the supervisor varnish, Dr. Sanchez. -0 cc: Torito Byrd MD
[2018-10-01] MEDS: ALDACTONE PO SCH (10:29)
[2018-10-01] MEDS: LANOXIN PO SCH (10:29)
[2018-10-01] MEDS: MAG-OX PO SCH (10:29)
[2018-10-01] MEDS: COREG PO SCH ×2 (10:29→21:49)
[2018-10-01] MEDS ORDERED: COUMADIN PO SCH (21:00)
--- NOTE | 2018-10-01 21:13 | PULMONOLOGY PROGRESS NOTE ---
DATE: 10/01/2018 SUBJECTIVE: Patient feels better. He is resting comfortably this evening. He did have a 1500 mL thoracentesis performed earlier today. OBJECTIVE: Vital Signs: Heart rate 93, respiratory rate 17, blood pressure 110/68, oxygen saturation 92%. HEENT: Pupils are equal and reactive. Oropharynx appears clear. Neck: Supple. Chest: Diminished breath sounds in both lung bases. Cardiac: S1, S2. Abdomen: Soft. Extremities: Trace edema. LABORATORIES: White blood count 4.36, hemoglobin 12.8, platelet count 160,000. Sodium 140, potassium 4.5, chloride 100, bicarbonate 33, BUN 67, creatinine 1.9. ProBNP yesterday was greater than 35,000. Chest x-ray following thoracentesis reveals significant decrease in right-sided pleural effusion. IMPRESSION: An 88-year-old with: 1. Severe heart failure, due to severe mitral regurgitation. 2. Pleural effusion. 3. Chronic atrial fibrillation. 4. Coronary artery disease. 5. Acute hypoxemic respiratory failure. 6. Progressive renal insufficiency, while on Lasix drip. RECOMMENDATIONS: 1. Discontinue Lasix drip due to progressive renal failure. 2. Prognosis is poor. No additional pulmonary recommendations available for this patient. Recommend hospice evaluation and palliative measures as outlined by Dr. Sanchez. cc: MD Torito Judd MD
[2018-10-01] MEDS: LIPITOR PO SCH (21:49)
[2018-10-02] MEDS: DUONEB (A & A) INH SCH ×4 (03:35→21:21)
[2018-10-02] MEDS: CARDIZEM PO SCH ×4 (03:55→20:18)
[2018-10-02] MEDS: HEPARIN SUBQ SCH ×2 (05:53→17:31)
[2018-10-02] MEDS: PROTONIX PO SCH (06:00)
[2018-10-02] MEDS: MAG-OX PO SCH (08:34)
[2018-10-02] MEDS: LANOXIN PO SCH (08:34)
[2018-10-02] MEDS: HYDROCORTISONE 2.5% LOTION TOP SCH ×2 (08:34→20:18)
[2018-10-02] MEDS: ALDACTONE PO SCH (08:34)
[2018-10-02] MEDS: COREG PO SCH ×2 (08:34→20:18)
--- NOTE | 2018-10-02 10:43 | PROGRESS NOTE ---
DATE: 10/02/2018 SUBJECTIVE: Mr. Sarmiento is doing better. He was getting Lasix drip, which we had to stop because of increasing BUN and creatinine. He is somewhat hypotensive. He was evaluated by Dr. Ann for possible Entresto but with hypotension he is not a good candidate. Mr. Sarmiento has severe mitral regurgitation and the Lasix drip has been stopped for the time being. Overall condition is unchanged. cc: Torito Byrd MD
[2018-10-02] MEDS: LIPITOR PO SCH (20:18)
[2018-10-03] MEDS: CARDIZEM PO SCH ×4 (02:02→20:44)
[2018-10-03] MEDS: HEPARIN SUBQ SCH ×2 (04:44→17:16)
[2018-10-03] MEDS: PROTONIX PO SCH ×2 (04:44→06:02)
[2018-10-03] MEDS: DUONEB (A & A) INH SCH ×4 (05:40→23:09)
[2018-10-03] MEDS: COREG PO SCH ×2 (08:51→20:44)
[2018-10-03] MEDS: MAG-OX PO SCH (08:51)
[2018-10-03] MEDS: LANOXIN PO SCH (08:54)
[2018-10-03] MEDS: ALDACTONE PO SCH (08:55)
[2018-10-03] MEDS: HYDROCORTISONE 2.5% LOTION TOP SCH ×2 (10:16→20:45)
--- NOTE | 2018-10-03 14:04 | PROGRESS NOTE ---
DATE: 10/03/2018 SUBJECTIVE: He is recovering. He is somewhat weak, but still he is feeling much better. He is in physical therapy. We are going to start it. I discussed with him about going back to [facility] for rehab. At present, he is refusing. We will continue with the current management. cc: Torito Byrd MD
--- NOTE | 2018-10-03 17:32 | CARDIOLOGY PROGRESS NOTE ---
DATE: 10/03/2018 CHIEF COMPLAINT: Shortness of breath. Swelling. SUBJECTIVE: Mr. Sarmiento seems to be more comfortable. He is still dyspneic. However, after thoracentesis that was done on the , he feels like he is breathing more comfortably. OBJECTIVE: Vital signs: Blood pressure is 101/63, temperature 97.4, pulse 93, respirations 28. General: He is awake. Chronically ill. HEENT: Unremarkable. Chest: Diminished breath sounds bilaterally, more so on the right side. Heart: Heart sounds are irregularly irregular. Systolic murmur noted. Abdomen: Nontender. Extremities: No edema. Neurological: Moves four extremities. Follows commands. LABORATORY WORK: Sodium 140, potassium 4.5, BUN 67, creatinine 1.9. IMPRESSION: 1. Patient who presented with recurrent congestive heart failure. This is due to valvular disease and atrial fibrillation. 2. Pleural effusion, recurrent. 3. History of previous coronary bypass surgery. Severe coronary heart disease. 4. Permanent atrial fibrillation. RECOMMENDATION: Continue supportive measures. Prognosis is very poor. cc: MD Torito Zamarripa MD
[2018-10-03] MEDS: LIPITOR PO SCH (20:44)
[2018-10-03] MEDS: TIMOPTIC 0.5% OPH SOLUTION BOTH EYES SCH (22:01)
[2018-10-04] MEDS: CARDIZEM PO SCH ×4 (03:00→21:13)
[2018-10-04] MEDS: DUONEB (A & A) INH SCH ×4 (05:23→21:58)
[2018-10-04] MEDS: PROTONIX PO SCH ×2 (05:31→06:50)
[2018-10-04] MEDS: HEPARIN SUBQ SCH ×2 (05:31→16:58)
[2018-10-04 06:08] LABS: INR 1.15; PROTIME 15.6 Seconds (11.0-16.0)
[2018-10-04 06:30] LABS: CALCIUM 9.2 mg/dL (8.8-10.2); CREATININE 1.3 mg/dL (0.7-1.2); POTASSIUM 4.2 mmol/L (3.5-5.1)
[2018-10-04] MEDS: ALDACTONE PO SCH (09:09)
[2018-10-04] MEDS: LANOXIN PO SCH (09:10)
[2018-10-04] MEDS: COREG PO SCH ×2 (09:11→21:13)
[2018-10-04] MEDS: MAG-OX PO SCH (09:11)
[2018-10-04] MEDS: TIMOPTIC 0.5% OPH SOLUTION BOTH EYES SCH ×2 (09:21→21:13)
[2018-10-04] MEDS: HYDROCORTISONE 2.5% LOTION TOP SCH ×2 (09:21→21:13)
--- NOTE | 2018-10-04 10:03 | PROGRESS NOTE ---
DATE: 10/04/2018 Vital signs stable with temperature 97.4 degrees, heart rate 83, respirations 18, blood pressure 99/66, O2 saturation on 4 L nasal oxygen 96%. LABORATORY: Sodium 139, potassium 4.2, BUN 49, creatinine 1.3, glucose 124, calcium 9.2. ProBNP on 09/30 was elevated at greater than 35,000. TSH on 10/01 was 1.9. He states he is feeling pretty good this morning and breathing fairly well. He ate breakfast reasonably well. Lungs reveal decreased breath sounds at the bases, otherwise clear. The patient does not want to return to [facility] at discharge. Social Service consult will be obtained. He has been followed by Dr. Foster and Dr. Sanchez. He has atrial fibrillation, coronary artery disease, and chronic congestive heart failure. Hospice care has been recommended. cc: MD Torito Echols MD
--- NOTE | 2018-10-04 16:30 | PULMONOLOGY PROGRESS NOTE ---
DATE: 10/04/2018 SUBJECTIVE: The patient is arousable to alert. He is frequently sleeping upon my arrival. His p.o. intake appears to be decreased over the last 2 days. He has mild work of breathing. OBJECTIVE: Vital Signs: BP 95/69, heart rate 76, respiratory rate 18, oxygen saturation 100% on 4 L per nasal cannula. HEENT: Pupils are equal and reactive. Oropharynx is clear. Neck: Supple. Chest: Reveals irregularly irregular breath sounds with 2 to 3/6 low-pitched murmur at lower left sternal border. Abdomen: Soft. Extremities: Reveal trace edema. IMPRESSION: An 88-year-old with: 1. Recurrent pleural effusions. 2. Systolic heart failure due to severe mitral regurgitation. 3. Chronic atrial fibrillation. 4. Hypoxemic respiratory failure. 5. Coronary artery disease. DISCUSSION: An 88-year-old with problems outlined above. His work of breathing has increased over the last 2 days. PLAN: 1. Check chest x-ray tomorrow. 2. The patient's prognosis is poor. Agree with palliative/hospice recommendations as outlined by Dr. Sanchez. cc: MD Torito Judd MD
[2018-10-04] MEDS: LIPITOR PO SCH (21:13)
[2018-10-05] MEDS: DUONEB (A & A) INH SCH ×4 (03:33→22:28)
[2018-10-05] MEDS: CARDIZEM PO SCH ×4 (03:47→21:09)
[2018-10-05] MEDS: HEPARIN SUBQ SCH ×2 (06:01→21:10)
[2018-10-05] MEDS: PROTONIX PO SCH (06:01)
--- NOTE | 2018-10-05 07:05 | Diag Imaging Result Doc PS360 ---
EXAM: CHEST-PORTABLE 10/05/2018 HISTORY: abnormal exam TECHNIQUE: AP portable at [id number] COMMENT: There are bilateral pleural effusions. There has been marked increase in the alveolar opacity in the parahilar right lung compared to 10/01/2018. The volume of pleural fluid on the right has also increased. IMPRESSION: Worsened pulmonary edema plus minus pneumonia. Bilateral pleural effusions. Electronically signed by John Leon 10/05/2018 7:03 AM
[2018-10-05] MEDS: MAG-OX PO SCH (08:48)
[2018-10-05] MEDS: COREG PO SCH ×2 (08:48→21:09)
[2018-10-05] MEDS: LANOXIN PO SCH (08:48)
[2018-10-05] MEDS: ALDACTONE PO SCH (08:48)
[2018-10-05] MEDS: KLOR-CON PO SCH ×2 (08:51→21:09)
[2018-10-05] MEDS: LASIX IV SCH ×2 (08:51→21:10)
[2018-10-05] MEDS: TIMOPTIC 0.5% OPH SOLUTION BOTH EYES SCH ×2 (08:51→21:10)
[2018-10-05] MEDS: HYDROCORTISONE 2.5% LOTION TOP SCH ×2 (08:56→21:10)
--- NOTE | 2018-10-05 08:58 | PROGRESS NOTE ---
DATE: 10/05/2018 Vital signs stable with temperature 97.7 degrees, heart rate 87, respirations 18, blood pressure 114/69, O2 saturation on 4 L nasal oxygen 96%. Chest x-ray shows increasing pulmonary edema bilaterally. The patient is alert and eating breakfast. Lungs reveal decreased breath sounds at the bases. Abdomen is soft. Ankles, no edema. IMPRESSION: Congestive heart failure with pulmonary edema. PLAN: Add IV Lasix and increase p.o. spironolactone dose. Also, potassium chloride is added, 10 mEq b.i.d. Lab will be rechecked tomorrow morning. cc: MD Torito Echols MD
[2018-10-05] MEDS: LIPITOR PO SCH (21:09)
[2018-10-06] MEDS: CARDIZEM PO SCH ×5 (02:36→21:14)
[2018-10-06] MEDS: DUONEB (A & A) INH SCH ×4 (03:05→21:41)
[2018-10-06] MEDS: PROTONIX PO SCH (06:27)
[2018-10-06 07:56] LABS: CALCIUM 9.3 mg/dL (8.8-10.2); CREATININE 1.7 mg/dL (0.7-1.2); POTASSIUM 5.7 mmol/L (3.5-5.1)
[2018-10-06] MEDS: ALDACTONE PO SCH (08:02)
[2018-10-06] MEDS: MAG-OX PO SCH (08:02)
[2018-10-06] MEDS: COREG PO SCH ×2 (08:03→21:15)
[2018-10-06] MEDS: LANOXIN PO SCH (08:03)
[2018-10-06] MEDS: KLOR-CON PO SCH (08:03)
[2018-10-06] MEDS: HEPARIN SUBQ SCH ×2 (08:06→21:16)
[2018-10-06] MEDS: LASIX IV SCH ×2 (08:08→21:16)
[2018-10-06] MEDS: TIMOPTIC 0.5% OPH SOLUTION BOTH EYES SCH ×2 (08:11→21:16)
[2018-10-06] MEDS: HYDROCORTISONE 2.5% LOTION TOP SCH ×2 (08:13→21:16)
[2018-10-06] MEDS ORDERED: KAYEXALATE PO ONE (08:49)
--- NOTE | 2018-10-06 09:15 | PROGRESS NOTE ---
DATE: 10/06/2018 Mr. Sarmiento is not feeling good. He is in chronic congestive heart failure. He is very weak, cannot eat much. His potassium is 5.7. Chest x-ray shows much worsening of the congestive heart failure. Right side is healing up. He is getting IV Lasix 40 mg every 12 hours. We will give him Kayexalate. Change him to a regular diet if that helps his appetite. cc: Torito Byrd MD
[2018-10-06] MEDS ORDERED: ATIVAN IV PRN (11:44)
--- NOTE | 2018-10-06 12:42 | Diag Imaging Result Doc PS360 ---
EXAM: CHEST-PORTABLE HISTORY: worsening SOB TECHNIQUE: Chest single view COMPARISON: 10/05/2018 FINDINGS: Poor inspiratory effort. There are bilateral infiltrates and pleural effusions similar to the prior exam. There is basilar atelectasis. Heart is prominent and there are sternal wires. IMPRESSION: No interval improvement. Electronically signed by Luis Antonio Mtz 10/06/2018 12:39 PM
[2018-10-06] MEDS: LIPITOR PO SCH (21:14)
[2018-10-07] MEDS: DUONEB (A & A) INH SCH (03:13)
[2018-10-07] MEDS: CARDIZEM PO SCH (04:13)
[2018-10-07 04:23] VITALS: BP 87/53
--- NOTE | 2018-10-08 04:44 | DISCHARGE SUMMARY ---
ADMISSION DATE: 09/30/2018 DISCHARGE DATE: 10/07/2018 HOSPITAL COURSE: Mr. Sarmiento, who was an 88-year-old, white gentleman came with severe congestive heart failure with bilateral pleural effusion. His CBC revealed anemia. Hemoglobin was 13, hematocrit was 39.2. INR was 1.15. His BUN was 67, creatinine 1.9. It almost remained around that level, BUN 63, creatinine 1.7. Urinalysis was unremarkable. He had a chest x-ray done which revealed bilateral pleural effusion and pulmonary edema. We did one attempt for thoracentesis on the right side and about 1500 mL of transudative fluid was drained. He was given Lasix IV and he continued to do poorly. The chest filled up within about 5 days and was even worse. He had pulmonary and cardiology consultations. He had severe mitral regurgitation with both diastolic and systolic congestive heart failure, and he finally succumbed. FINAL DIAGNOSES: 1. Congestive heart failure. 2. Bilateral pleural effusion. 3. Chronic atrial fibrillation. PLAN: Plan to send him to the home. cc: Torito Byrd MD
== END 2018-10-07 04:43 | disposition expired | DRG 291 ==
LOC: ED 00:38 → SUATTDRO 04:54 → 3S 04:54
PROVIDERS: ADMIT Internal Medicine; ATTEND Internal Medicine
CPT/HCPCS: 32421; 32555; 71010; 71020; 71045; 71046; 80048; 80053; 81001; 83880; 84443; 84484; 85025; 85610; 93005; 94640; 94761; 96374; 96375; 97162; 97165; 97530; 97535; 99285; A9270; J1160; J1644; J1940; J2060